=== PATIENT | male | born 1945 | race Caucasian/White ===

== ENCOUNTER 2017-01-30 20:59 | Emergency (ER) | payer BC, OTHER ==
[~2017-01-30] VITALS: Ht 177.8 cm; Wt 85.0 kg
[~2017-01-30 20:59] MED LIST: OXYC-57 PO
[2017-01-30 21:05] VITALS: TEMP 36.9; Ht 177.8 cm; Wt 85.0 kg
[2017-01-30] MEDS ORDERED: SODIUM CHLORIDE 0.9% 1000ML 1,000 ML IV STA (21:38)
[2017-01-30 21:52] VITALS: O2SAT 97
[2017-01-30] MEDS ORDERED: LISI-725 PO (22:06)
[2017-01-30] MEDS ORDERED: AMLO-110 PO (22:06)
[2017-01-30] MEDS ORDERED: METO50TA16 PO (22:06)
[2017-01-30] MEDS ORDERED: SULF800T23 PO (22:06)
[2017-01-30 22:09] LABS: BASO % 0.2 %; BASO ABS # 0.01 K/uL (0-0.2); COMPLETE YES; EOS % 0.7 %; HEMATOCRIT 28.9 % (42-52); IG% 0.2 %; LYMPH % 13.6 %; LYMPH ABS # 0.61 K/uL (1.2-3.4); MEAN CELL VOLUME 96.3 fL (80-100); MEAN CORPUSCULAR HGB CONC 35.3 g/dl (32-36); MEAN PLATELET VOLUME 8.9 fL (7.4-10.4); MONO % 10.7 %; NEUT % 74.6 %; PLATELET COUNT 262 K/uL (130-400)
[2017-01-30 22:26] LABS: ALT/SGPT 21 U/L (12-78); BLOOD UREA NITROGEN 18 mg/dl (7-18); BUN/CREATININE RATIO 14.2 (10-20); CALCIUM 7.9 mg/dl (8.5-10.1); CARBON DIOXIDE 29 mmol/L (21-32); CHLORIDE 101 mmol/L (98-107); GLUCOSE 95 mg/dl (70-99); MAGNESIUM 1.3 mg/dl (1.8-2.4); POTASSIUM 3.6 mmol/L (3.5-5.1); SODIUM 138 mmol/L (136-145)
[2017-01-30 22:28] LABS: ALKALINE PHOSPHATASE 53 U/L (45-117); AST/SGOT 21 U/L (15-37)
[2017-01-30] MEDS ORDERED: MAGNESIUM SULFATE 1GM / D5W 1 GM BAG IV STA (22:30)
[2017-01-30 23:32] LABS: URINE APPEARANCE CLEAR (CLEAR); URINE BILIRUBIN NEG (NEG); URINE COLOR YELLOW; URINE NITRITE NEG (NEG); URINE PH 6.5 (4.5-7.5); URINE SPECIFIC GRAVITY 1.018 (1.000-1.030); UROBILINOGEN POS (NEG)
[2017-01-30 23:37] LABS: MANUAL MICROSCOPIC REQUIRED? NO; REVIEW REQ? NO
--- NOTE | 2017-01-31 00:10 | EMERGENCY ROOM VISIT NOTE ---
History Report prepared by Sariah: Lorenzo Villafuerte Under the Supervision of: Raquel PortilloO. First contact with patient: 21:27 Chief Complaint: WEAKNESS Stated Complaint: UTI, LETHARGY, WEAK LEGS Nursing Triage Summary: Pt to triage in wheelchair. c/o lethargy and weakness. Ongoing for 10 days, worsening. seen at [facility] in, did blood work, sent to Dr Pro. Be with urinary infection, on abx for 2 days. Hx of enlarged prostate. denies pain denies urinary symptoms History of Present Illness The patient is a 71 year old male who presents to the Emergency Room with complaints of persistent generalized weakness beginning three days ago. He states that he has felt lethargic for the past ten days. 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 The patient notes that his right leg feels slightly weaker than his left. He denies any cough, urinary symptoms, or fevers. He was seen in a clinic in [place] three days ago for similar symptoms and was started on an antibiotic for a suspected UTI. Source of History: patient Onset: Three days ago Position: other (generalized) Quality: other (weakness) Timing: other (persistent) Associated Symptoms: No fevers, No cough, No urinary symptoms Note: The patient also complains of lethargy. Review of Systems See HPI for pertinent positives and negatives. A total of ten systems were reviewed and were otherwise negative. Past Medical & Surgical Medical Problems: (1) HTN (hypertension) Family History No pertinent family history stated. Social History Smoking Status: Former Smoker Occupation Status: employed Current/Historical Medications Scheduled Amlodipine (Norvasc), 5 MG PO DAILY Lisinopril (Zestril), 20 MG PO DAILY Metoprolol Tartrate (Lopressor) (Lopressor), 50 MG PO BID Sulfa/Trimethoprim (Bactrim Ds 800MG/160MG), 1 TAB PO BID Allergies Uncoded Allergies: POISEN YADY (Allergy, Intermediate, ITCHY, 01/30/17) Physical Exam Vital Signs Date Time Temp Pulse Resp B/P (MAP) Pulse Ox O2 Delivery O2 Flow Rate FiO2 01/30/17 23:50 74 20 145/88 100 Room Air 01/30/17 22:08 95 01/30/17 21:56 94 20 162/98 100 Room Air 01/30/17 21:52 97 Room Air 01/30/17 21:05 36.9 102 18 128/71 97 Room Air Physical Exam GENERAL: Awake, alert, well-appearing, in no distress HENT: Normocephalic, atraumatic. Oropharynx unremarkable. EYES: Normal conjunctiva. Sclera non-icteric. NECK: Supple. No nuchal rigidity. FROM. No JVD. RESPIRATORY: Clear to auscultation. CARDIAC: Regular rate, normal rhythm. Extremities warm and well perfused. Pulses equal. ABDOMEN: Soft, non-distended. No tenderness to palpation. No rebound or guarding. No masses. RECTAL: Deferred. MUSCULOSKELETAL: Chest examination reveals no tenderness. The back is symmetrical on inspection without obvious abnormality. There is no CVA tenderness to palpation. No joint edema. LOWER EXTREMITIES: Calves are equal size bilaterally and non-tender. No edema. No discoloration. NEURO: Normal sensorium. No sensory or motor deficits noted. SKIN: No rash or jaundice noted. Medical Decision & Procedures Laboratory Results 01/30/17 21:50 Red Blood Count 3.00, Mean Corpuscular Volume 96.3, Mean Corpuscular Hemoglobin 34.0, Mean Corpuscular Hemoglobin Concent 35.3, Mean Platelet Volume 8.9, Neutrophils (%) (Auto) 74.6, Lymphocytes (%) (Auto) 13.6, Monocytes (%) (Auto) 10.7, Eosinophils (%) (Auto) 0.7, Basophils (%) (Auto) 0.2, Neutrophils # (Auto ) 3.36, Lymphocytes # (Auto) 0.61, Monocytes # (Auto) 0.48, Eosinophils # (Auto ) 0.03, Basophils # (Auto) 0.01 01/30/17 21:50 Test 01/30/17 21:38 01/30/17 21:50 Urine Color YELLOW Urine Appearance CLEAR (CLEAR) Urine pH 6.5 (4.5-7.5) Urine Specific [place] 1.018 (1.000-1.030) Urine Protein NEG (NEG) Urine Glucose (UA) NEG (NEG) Urine Ketones NEG (NEG) Urine Occult Blood NEG (NEG) Urine Nitrite NEG (NEG) Urine Bilirubin NEG (NEG) Urine Urobilinogen POS (NEG) Urine Leukocyte Esterase TRACE (NEG) Urine WBC (Auto) 1-5 /hpf (0-5) Urine RBC (Auto) 0-4 /hpf (0-4) Urine Hyaline Casts (Auto) 1-5 /lpf (0-5) Urine Epithelial Cells (Auto) 10-20 /lpf (0-5) Urine Bacteria (Auto) NEG (NEG) White Blood Count 4.50 K/uL (4.8-10.8) Red Blood Count 3.00 M/uL (4.7-6.1) Hemoglobin 10.2 g/dL (14.0-18.0) Hematocrit 28.9 % (42-52) Mean Corpuscular Volume 96.3 fL (80-100) Mean Corpuscular Hemoglobin 34.0 pg (25-34) Mean Corpuscular Hemoglobin Concent 35.3 g/dl (32-36) Platelet Count 262 K/uL (130-400) Mean Platelet Volume 8.9 fL (7.4-10.4) Neutrophils (%) (Auto) 74.6 % Lymphocytes (%) (Auto) 13.6 % Monocytes (%) (Auto) 10.7 % Eosinophils (%) (Auto) 0.7 % Basophils (%) (Auto) 0.2 % Neutrophils # (Auto) 3.36 K/uL (1.4-6.5) Lymphocytes # (Auto) 0.61 K/uL (1.2-3.4) Monocytes # (Auto) 0.48 K/uL (0.11-0.59) Eosinophils # (Auto) 0.03 K/uL (0-0.5) Basophils # (Auto) 0.01 K/uL (0-0.2) RDW Standard Deviation 53.3 fL (36.4-46.3) RDW Coefficient of Variation 15.1 % (11.5-14.5) Immature Granulocyte % (Auto) 0.2 % Immature Granulocyte # (Auto) 0.01 K/uL (0.00-0.02) Nucleated RBC Absolute Count (auto) 0.02 K/uL (0-0) Nucleated Red Blood Cells % 0.4 % Anion Gap 8.0 mmol/L (3-11) Est Creatinine Clear Calc Drug Dose 53.0 ml/min Estimated GFR () 63.2 Estimated GFR (Non- 54.5 BUN/Creatinine Ratio 14.2 (10-20) Calcium Level 7.9 mg/dl (8.5-10.1) Magnesium Level 1.3 mg/dl (1.8-2.4) Total Bilirubin 0.3 mg/dl (0.2-1) Direct Bilirubin < 0.1 mg/dl (0-0.2) Aspartate Amino Transf (AST/SGOT) 21 U/L (15-37) Alanine Aminotransferase (ALT/SGPT) 21 U/L (12-78) Alkaline Phosphatase 53 U/L (45-117) Total Protein 6.7 gm/dl (6.4-8.2) Albumin 2.4 gm/dl (3.4-5.0) Laboratory results reviewed by me Medications Administered Medications (Trade) Dose Ordered Sig/Kell Route Start Time Stop Time Status Last Admin Dose Admin Sodium Chloride 1,000 ml @ 999 mls/hr Q1H1M STAT IV 01/30/17 21:38 01/30/17 22:38 DC 01/30/17 21:57 999 MLS/HR Magnesium Sulfate (Magnesium Sulfate) 1 gm NOW STAT IV 01/30/17 22:30 01/30/17 22:32 DC 01/30/17 22:53 1 GM ECG Indication: weakness Rate (beats per minute): 93 Rhythm: normal sinus Findings: no acute ischemic change, no ectopy, other (Normal axis. Normal intervals. ) ED Course 2129: The patient was evaluated in room C7. A complete history and physical exam was performed. 2137: Ordered Sodium Chloride 1000 ml @ 999 mls/hr IV. 2229: Ordered Magnesium Sulfate 1 gm IV. 0010: I reevaluated the patient. Discussed results and discharge instructions: he verbalized understanding and agreement. The patient is ready for discharge. Medical Decision Differential diagnosis: Etiologies such as metabolic, infection, hypo/hyperglycemia, electrolyte abnormalities, cardiac sources, intracerebral event, toxicologic, neurologic, as well as others were entertained. Patient found to have a slightly low magnesium was given magnesium IV. Patient is neurologically intact. I discussed the evaluation with the patient bedside at 12:08 AM Impression Primary Impression: Acute weakness Additional Impression: Hypomagnesemia Scribe Attestation The scribe's documentation has been prepared under my direction and personally reviewed by me in its entirety. I confirm that the note above accurately reflects all work, treatment, procedures, and medical decision making performed by me. Departure Information Dispostion Home / Self-Care Referrals Pro,Rigo Anderson M.D. (PCP) Patient Instructions ED Weakness UKO, Hypomagnesemia Dc, My [facility] Additional Instructions Patient was instructed to take magnesium supplementation and a multivitamin. Increase fluids return for worsening symptoms. Problem Qualifiers
[2017-01-31 00:45] VITALS: BP 146/78; PULSE 84; O2SAT 98
== END 2017-01-31 00:45 | disposition home or self-care (01) ==
LOC: C.EDB 21:01 → C.EDC 01-31 00:45
DX: R53.1 Weakness (principal); E83.42 Hypomagnesemia; I10 Essential (primary) hypertension; Z87.891 Personal history of nicotine dependence; Z79.899 Other long term (current) drug therapy; Z91.09 Other allergy status, other than to drugs and biological substances

== ENCOUNTER → 2017-02-03 | Outpatient (CLI) | payer OTHER ==
[~2017-02-03] MED LIST changes: +AMLO-110 PO; +LISI-725 PO; +METO50TA16 PO; -OXYC-57 PO; +SULF800T23 PO
[2017-02-03 17:19] LABS: MAGNESIUM 1.9 mg/dl (1.8-2.4); THYROID STIMULATING HORMONE 3.9 uIu/ml (0.300-4.500)
== END | disposition home or self-care (01) ==
LOC: C.LAB1850 15:20
PROVIDERS: ATTEND Internal Medicine
DX: R53.1 Weakness (principal)

== ENCOUNTER 2017-02-07 08:02 | Emergency (ER) | payer OTHER ==
[2017-02-07 08:03] VITALS: TEMP 36.6; Ht 177.8 cm
[2017-02-07] MEDS ORDERED: SODIUM CHLORIDE 0.9% 500ML 500 ML IV STA (08:34)
[2017-02-07] MEDS ORDERED: SODIUM CHLORIDE 0.9% 1000ML 1,000 ML IV STA (08:34)
--- NOTE | 2017-02-07 08:49 | EMERGENCY ROOM VISIT NOTE ---
History Report prepared by Sariah: Ryann Gayle Under the Supervision of: Dr. Delia Bach M.D. First contact with patient: 08:11 Chief Complaint: WEAKNESS Stated Complaint: LACK OF ENERGY-SENT BY 'S OFFICE Nursing Triage Summary: Pt c/o generalized weakness and fatigue x2 weeks Reports he was seen in ED for same last week Saw Dr. Mehta this morning and sent back to ED for eval History of Present Illness The patient is a 71 year old male who presents to the Emergency Room with complaints of constant weakness for the past two weeks. His weakness is not better or worse at different times throughout the day. The patient was seen in the ED last week for this complaint and followed up with his PCP this morning. He saw Dr. Mehta today who felt that the patient should discontinue his blood pressure medications and come to the ED for fluids and further evaluation. The patient states that he has been on three medications for hypertension for the past 5 years. He was normotensive on these medications, but states that over the past couple of weeks his blood pressure has been lower. The patient also reports a loss of appetite. He is forcing himself to eat meals. He estimates that he has lost between 30-35 pounds in the past 6 months. The patient denies cough, chest pain, shortness of breath, melena, and hematochezia. He did not take his medications this morning and he did not eat anything yet today. Source of History: patient Onset: two weeks ago Position: other (global) Quality: other (weakness) Timing: constant Associated Symptoms: No cough, No chest pain, No SOB, No melena, No hematochezia Note: Pt notes loss of appetite and weight loss. Review of Systems See HPI for pertinent positives & negatives. A total of 10 systems reviewed and were otherwise negative. Past Medical & Surgical Medical Problems: (1) HTN (hypertension) Surgical Problems: (1) History of tonsillectomy Family History Cancer Hypertension Social History Smoking Status: Former Smoker Alcohol Use: occasionally Housing Status: lives alone Occupation Status: employed Current/Historical Medications Scheduled Amlodipine (Norvasc), 2.5 MG PO DAILY Lisinopril (Zestril), 20 MG PO DAILY Metoprolol Tartrate (Lopressor) (Lopressor), 50 MG PO BID Allergies Coded Allergies: Poison Karla Extract/Poison [place] Extra (Unverified Allergy, Intermediate, ITCH, 02/07/17) Physical Exam Vital Signs Date Time Temp Pulse Resp B/P (MAP) Pulse Ox O2 Delivery O2 Flow Rate FiO2 02/07/17 11:36 105 18 115/62 99 02/07/17 10:32 85 16 116/51 99 Room Air 02/07/17 08:54 95 18 102/57 96 Room Air 02/07/17 08:34 93 02/07/17 08:03 36.6 93 20 96/60 100 Room Air Physical Exam Vital signs reviewed. General: Pale-appearing 71 year old male, in no significant distress. HEENT: No scleral icterus, PERRLA, neck supple. Atraumatic. Cardiovascular: Regular rate and rhythm, no extra sounds. Pulmonary: Clear to auscultation bilaterally, normal work of breathing. Abdomen: Soft, nontender, nondistended, positive bowel sounds. Rectal: Guaiac negative. Normal mucosa. Musculoskeletal: Atraumatic, no peripheral edema. Neurologic: Patient awake alert and oriented x 3, full strength in all 4 extremities. Cranial nerves 2 through 12 grossly intact. Skin: Warm, dry, no rash Medical Decision & Procedures Laboratory Results 02/07/17 08:50 Red Blood Count 3.40, Mean Corpuscular Volume 96.8, Mean Corpuscular Hemoglobin 33.5, Mean Corpuscular Hemoglobin Concent 34.7, Mean Platelet Volume 8.9, Neutrophils (%) (Auto) 72.3, Lymphocytes (%) (Auto) 11.8, Monocytes (%) (Auto) 12.9, Eosinophils (%) (Auto) 1.8, Basophils (%) (Auto) 0.7, Neutrophils # (Auto ) 4.05, Lymphocytes # (Auto) 0.66, Monocytes # (Auto) 0.72, Eosinophils # (Auto ) 0.10, Basophils # (Auto) 0.04 02/07/17 08:50 Test 02/07/17 08:50 02/07/17 09:35 White Blood Count 5.60 K/uL (4.8-10.8) Red Blood Count 3.40 M/uL (4.7-6.1) Hemoglobin 11.4 g/dL (14.0-18.0) Hematocrit 32.9 % (42-52) Mean Corpuscular Volume 96.8 fL (80-100) Mean Corpuscular Hemoglobin 33.5 pg (25-34) Mean Corpuscular Hemoglobin Concent 34.7 g/dl (32-36) Platelet Count 400 K/uL (130-400) Mean Platelet Volume 8.9 fL (7.4-10.4) Neutrophils (%) (Auto) 72.3 % Lymphocytes (%) (Auto) 11.8 % Monocytes (%) (Auto) 12.9 % Eosinophils (%) (Auto) 1.8 % Basophils (%) (Auto) 0.7 % Neutrophils # (Auto) 4.05 K/uL (1.4-6.5) Lymphocytes # (Auto) 0.66 K/uL (1.2-3.4) Monocytes # (Auto) 0.72 K/uL (0.11-0.59) Eosinophils # (Auto) 0.10 K/uL (0-0.5) Basophils # (Auto) 0.04 K/uL (0-0.2) RDW Standard Deviation 54.5 fL (36.4-46.3) RDW Coefficient of Variation 15.5 % (11.5-14.5) Immature Granulocyte % (Auto) 0.5 % Immature Granulocyte # (Auto) 0.03 K/uL (0.00-0.02) Anion Gap 9.0 mmol/L (3-11) Estimated GFR () 49.2 Estimated GFR (Non- 42.4 BUN/Creatinine Ratio 12.9 (10-20) Calcium Level 8.6 mg/dl (8.5-10.1) Magnesium Level 2.1 mg/dl (1.8-2.4) Total Bilirubin 0.3 mg/dl (0.2-1) Direct Bilirubin < 0.1 mg/dl (0-0.2) Aspartate Amino Transf (AST/SGOT) 32 U/L (15-37) Alanine Aminotransferase (ALT/SGPT) 30 U/L (12-78) Alkaline Phosphatase 67 U/L (45-117) Total Creatine Kinase 108 U/L (39-308) Creatine Kinase MB 4.4 ng/ml (0.5-3.6) Creatine Kinase MB Ratio 4.1 (0-3.0) Total Protein 7.1 gm/dl (6.4-8.2) Albumin 2.7 gm/dl (3.4-5.0) Thyroid Stimulating Hormone (TSH) 3.780 uIu/ml (0.300-4.500) Urine Color YELLOW Urine Appearance CLEAR (CLEAR) Urine pH 5.5 (4.5-7.5) Urine Specific [place] 1.014 (1.000-1.030) Urine Protein NEG (NEG) Urine Glucose (UA) NEG (NEG) Urine Ketones NEG (NEG) Urine Occult Blood NEG (NEG) Urine Nitrite NEG (NEG) Urine Bilirubin NEG (NEG) Urine Urobilinogen NEG (NEG) Urine Leukocyte Esterase NEG (NEG) Laboratory results per my review. Medications Administered Medications (Trade) Dose Ordered Sig/Kell Route Start Time Stop Time Status Last Admin Dose Admin Sodium Chloride 500 ml @ 999 mls/hr Q31M STAT IV 02/07/17 08:34 02/07/17 09:04 DC 02/07/17 08:53 999 MLS/HR Sodium Chloride 1,000 ml @ 125 mls/hr Q8H STAT IV 02/07/17 08:34 02/07/17 12:16 DC 02/07/17 08:53 125 MLS/HR ECG Indication: weakness Rate (beats per minute): 97 Rhythm: sinus rhythm Findings: PAC, no ectopy Comparison ECG Date: 01/30/2017 Change: PACs are new. ED Course 0830: Past medical records reviewed. The patient was evaluated in room B11B. A complete history and physical examination was performed. 0834: NSS 1000 ml @ 125 mls/hr IV, NSS 500 ml @ 999 mls/hr IV 1009: I reevaluated the patient and he is doing well. 1026: I spoke with the patient's PCP, Dr. Mehta. We discussed his results and treatment plan and he will arrange follow-up in the office next week. 1100: I reassessed the patient at this time. He is feeling better and resting comfortably. I discussed the results and treatment plan with the patient. I answered all pertaining questions that he had. He expressed understanding and verbalized agreement. The patient will be discharged home. Medical Decision Differential diagnosis: Etiologies such as metabolic, infection, hypo/hyperglycemia, electrolyte abnormalities, cardiac sources, intracerebral event, toxicologic, neurologic, as well as others were entertained. This patient was evaluated and appeared to be in no significant distress. IV access was obtained and laboratory work was drawn. Patient was paced on the hall monitor and found to be in a normal sinus rhythm. He was hydrated with normal saline solution. Patient is found to be anemic. There is no active bleeding on exam. I did speak with Dr. Mehta, his primary care physician. I suspect as the patient has lost significant amount awaiting the last 6 months, his blood pressure medications are now too much for him. It has been recommended that he stop taking his blood pressure medications. I'm concerned about a possible malignancy causing the weight loss. Dr. Mehta will arrange follow-up within the next week where further evaluation can take place. Patient is aware of the plan and agrees. Medication Reconcilliation Current Medication List: was personally reviewed by me Blood Pressure Screening Patient's blood pressure: Low blood pressure Consults Time Called: [phone] Consulting Physician: Dr. Mehta Returned Call: [phone] I spoke with the patient's PCP, Dr. Mehta. We discussed his results and treatment plan and he will arrange follow-up in the office next week. Impression Primary Impression: Fatigue Additional Impression: Anemia Scribe Attestation The scribe's documentation has been prepared under my direction and personally reviewed by me in its entirety. I confirm that the note above accurately reflects all work, treatment, procedures, and medical decision making performed by me. Departure Information Dispostion Home / Self-Care Referrals Rigo Mehta M.D. (PCP) Forms HOME CARE DOCUMENTATION FORM, IMPORTANT VISIT INFORMATION Patient Instructions Anemia, My [facility] Additional Instructions Diagnosis: Anemia, fatigue Please stop taking your blood pressure medications. Drink plenty of clear fluids. Follow-up with Dr. Mehta's office next week, they will contact you with an appointment. You will likely need a colonoscopy. Return to the emergency department for worsening of symptoms or any medical concerns. Problem Qualifiers Primary Impression: Fatigue Fatigue type: unspecified Qualified Codes: R53.83 - Other fatigue Additional Impression: Anemia Anemia type: unspecified type Qualified Codes: D64.9 - Anemia, unspecified
[2017-02-07 09:06] LABS: BASO % 0.7 %; BASO ABS # 0.04 K/uL (0-0.2); COMPLETE YES; EOS % 1.8 %; HEMATOCRIT 32.9 % (42-52); IG% 0.5 %; LYMPH % 11.8 %; LYMPH ABS # 0.66 K/uL (1.2-3.4); MEAN CELL VOLUME 96.8 fL (80-100); MEAN CORPUSCULAR HEMOGLOBIN 33.5 pg (25-34); MEAN CORPUSCULAR HGB CONC 34.7 g/dl (32-36); MEAN PLATELET VOLUME 8.9 fL (7.4-10.4); MONO % 12.9 %; NEUT % 72.3 %; PLATELET COUNT 400 K/uL (130-400)
[2017-02-07 09:23] LABS: ALT/SGPT 30 U/L (12-78); BLOOD UREA NITROGEN 21 mg/dl (7-18); BUN/CREATININE RATIO 12.9 (10-20); CALCIUM 8.6 mg/dl (8.5-10.1); CARBON DIOXIDE 24 mmol/L (21-32); CHLORIDE 101 mmol/L (98-107); GLUCOSE 96 mg/dl (70-99); MAGNESIUM 2.1 mg/dl (1.8-2.4); POTASSIUM 4.6 mmol/L (3.5-5.1); SODIUM 134 mmol/L (136-145)
[2017-02-07 09:34] LABS: ALKALINE PHOSPHATASE 67 U/L (45-117); AST/SGOT 32 U/L (15-37); CKMB/CK RATIO 4.1 (0-3.0)
[2017-02-07 09:50] LABS: MANUAL MICROSCOPIC REQUIRED? NO; REVIEW REQ? NO; URINE APPEARANCE CLEAR (CLEAR); URINE BILIRUBIN NEG (NEG); URINE COLOR YELLOW; URINE NITRITE NEG (NEG); URINE PH 5.5 (4.5-7.5); URINE SPECIFIC GRAVITY 1.014 (1.000-1.030); UROBILINOGEN NEG (NEG); ZZUR CULT IF INDIC CLEAN CATCH NO
[2017-02-07 11:36] VITALS: BP 115/62; PULSE 105; O2SAT 99
== END 2017-02-07 11:38 | disposition home or self-care (01) ==
LOC: C.EDB 08:04
DX: R53.83 Other fatigue (principal); D64.9 Anemia, unspecified; I10 Essential (primary) hypertension; Z79.82 Long term (current) use of aspirin; Z87.891 Personal history of nicotine dependence

== ENCOUNTER → 2017-03-11 | Outpatient (CLI) | payer OTHER ==
[~2017-03-11] MED LIST changes: -SULF800T23 PO
[2017-03-11 14:44] LABS: HEMATOCRIT 38.2 % (42-52); MEAN CELL VOLUME 103.5 fL (80-100); MEAN CORPUSCULAR HEMOGLOBIN 35.5 pg (25-34); MEAN CORPUSCULAR HGB CONC 34.3 g/dl (32-36); MEAN PLATELET VOLUME 9.9 fL (7.4-10.4); PLATELET COUNT 343 K/uL (130-400); RED BLOOD COUNT 3.69 M/uL (4.7-6.1); WHITE BLOOD COUNT 6.44 K/uL (4.8-10.8)
[2017-03-11 15:13] LABS: BLOOD UREA NITROGEN 7 mg/dl (7-18); CALCIUM 8.9 mg/dl (8.5-10.1); CARBON DIOXIDE 27 mmol/L (21-32); CHLORIDE 106 mmol/L (98-107); CREATININE 0.66 mg/dl (0.60-1.40); GLUCOSE 111 mg/dl (70-99); POTASSIUM 3.6 mmol/L (3.5-5.1); SODIUM 140 mmol/L (136-145)
[2017-03-11 15:20] LABS: AMYLASE 27 U/L (25-115)
[2017-03-15 18:35] LABS: IGA SERUM 497 mg/dL (81-463); TIS TRANS IGA 1 U/mL (<4)
== END | disposition home or self-care (01) ==
LOC: C.LAB1850 13:24
PROVIDERS: ATTEND Internal Medicine
DX: D64.9 Anemia, unspecified (principal); R63.4 Abnormal weight loss; E53.8 Deficiency of other specified B group vitamins; R97.20 Elevated prostate specific antigen [PSA]; N28.9 Disorder of kidney and ureter, unspecified

== ENCOUNTER 2017-05-21 16:33 | Inpatient (IN) | payer OTHER ==
[~2017-05-21] VITALS: Ht 180.3 cm; Wt 74.3 kg
--- NOTE | 2017-05-21 17:41 | EMERGENCY ROOM VISIT NOTE ---
ED Visit Note First contact with patient: 16:40 HPI: 71M h/o HTN, fatigue, loss of appetite x 1 week. Similar episodes in the past. PE: AFVSS, NAD Poor dentition, dry cracked MM. NC/AT ST, no murmurs CTAB Abd soft NT/ND Ext: no edema, erythema Neuro: grossly intact Plan: +Melena guaiac positive in setting of fatigue. HR 100s, BUN 24, Hbg 7.2, Glascow-Blatchford score high risk. Will require admission. Will given protonix. Will transfuse given mild tachycardia and symptomatic with Hbg 7.2 I have personally spent greater than 35 minutes of critical care time in the direct management of this patient. This includes bedside care, interpretation of diagnostic studies, and testing, discussion with consultants, patient, and family members, and other required patient management activities. This 35 minutes is in excess of all separately billable procedures. I reviewed the patient's past medical history, medications, and visit nursing notes. I discussed the case with the resident physician, examined the patient, and agree with the findings and plan as documented in the residents note unless otherwise clarified here by me.
[2017-05-21] MEDS ORDERED: PANTOprazole INJ 40 MG in SYRINGE 0 ML IV ONE (17:45)
--- NOTE | 2017-05-21 17:50 | EMERGENCY ROOM VISIT NOTE ---
History First contact with patient: 16:40 Chief Complaint: WEAKNESS Stated Complaint: WEAKNESS Nursing Triage Summary: Pt. presents to exam room A3 via BLS transport with reports of increasing weakness of the last 3 days and decreased appetite over the past couple of weeks. Pt. states that he has not eating for 3 days, but then states that he ate a slice of pizza this morning. EMS states that the patient was found lying on the floor at home with a pillow and blanket, incontinent of black stool. Pt. reports that he has been too weak to go out and get food and too weak to walk to the bathroom. He denies any pain or other physical complaints. Pt. retching upon arrival to exam room and is covered from waist down in dried, dark brown-black stool. History of Present Illness The patient is a 71 year old male who presents to the Emergency Room with complaints of weakness and lack of appetite x 1 week. He reports that this has been ongoing since last year. He was seen in the ED twice this past summer. This will be his 3rd visit for the same. He reports that this is happening due to improper eating and lack of access to food. He has been crawling on the ground at his home to get around due to being weak and has not been able to go out to eat. He was found by EMS today lying on the floor, with a blanket and covered in black stool. He admits to irregular bowel movements; diarrhea mostly. He is currently denying chest pain, shortness of breath, abdominal pain, nausea , vomiting, pre-syncope, syncope He was recently seen by his PCP and was told that he was anemic and was started on B12 and Folate. Denies heart history. Drives a tour bus occasionally. His sisters note that they found a couple of gin bottles in his apartment and feel that he maybe drinking too much Review of Systems See HPI for pertinent positives & negatives. A total of 10 systems reviewed and were otherwise negative. Past Medical/Surgical History Medical Problems: (1) GI bleed (2) HTN (hypertension) Surgical Problems: (1) History of tonsillectomy Family History Cancer Hypertension Social History Smoking Status: Never Smoker Alcohol Use: occasionally Marital Status: single Housing Status: lives alone Occupation Status: employed Current/Historical Medications Scheduled Amlodipine (Norvasc), 2.5 MG PO DAILY Metoprolol Tartrate (Lopressor) (Lopressor), 50 MG PO Q12H Physical Exam Vital Signs Date Time Temp Pulse Resp B/P (MAP) Pulse Ox O2 Delivery O2 Flow Rate FiO2 05/21/17 20:00 113 17 131/72 100 Room Air 05/21/17 19:30 111 19 136/72 98 Room Air 05/21/17 18:55 112 24 120/58 100 Room Air 05/21/17 18:33 111 22 98 05/21/17 18:03 96 17 98 05/21/17 17:33 109 21 98 05/21/17 16:40 147/76 05/21/17 16:35 110 18 147/76 95 Room Air 05/21/17 16:35 95 Room Air Physical Exam GENERAL: Awake, alert, well-appearing, in no acute distress, disheveled HENT: Normocephalic, atraumatic. Oropharynx unremarkable, poor dentition, poor grooming EYES: Normal conjunctiva. Sclera non-icteric. NECK: Supple. RESPIRATORY: Clear to auscultation. CARDIAC: Tachycardic, normal rhythm. Pulses equal. ABDOMEN: Soft, non-distended. No tenderness to palpation. No rebound or guarding. No masses. RECTAL: Black stools noted, no masses LOWER EXTREMITIES: Calves are non-tender. No edema. No discoloration. SKIN: No rash or jaundice noted. Medical Decision & Procedures Laboratory Results 05/21/17 17:52 Red Blood Count 2.27, Mean Corpuscular Volume 93.4, Mean Corpuscular Hemoglobin 31.7, Mean Corpuscular Hemoglobin Concent 34.0, Mean Platelet Volume 9.7, Neutrophils (%) (Auto) 66.9, Lymphocytes (%) (Auto) 16.7, Monocytes (%) (Auto) 10.5, Eosinophils (%) (Auto) 0.4, Basophils (%) (Auto) 0.8, Neutrophils # (Auto ) 1.72, Lymphocytes # (Auto) 0.43, Monocytes # (Auto) 0.27, Eosinophils # (Auto ) 0.01, Basophils # (Auto) 0.02 05/21/17 17:52 Test 05/21/17 17:00 05/21/17 17:52 05/21/17 18:34 Urine Color DK YELLOW Urine Appearance TURBID (CLEAR) Urine pH 5.5 (4.5-7.5) Urine Specific Williams 1.028 (1.000-1.030) Urine Protein 1+ (NEG) Urine Glucose (UA) 3+ (NEG) Urine Ketones 1+ (NEG) Urine Occult Blood TRACE (NEG) Urine Nitrite POS (NEG) Urine Bilirubin NEG (NEG) Urine Urobilinogen POS (NEG) Urine Leukocyte Esterase SMALL (NEG) Urine WBC (Auto) 10-30 /hpf (0-5) Urine RBC (Auto) 5-10 /hpf (0-4) Urine Hyaline Casts (Auto) 10-30 /lpf (0-5) Urine Epithelial Cells (Auto) 0-5 /lpf (0-5) Urine Bacteria (Auto) NEG (NEG) White Blood Count 2.57 K/uL (4.8-10.8) Red Blood Count 2.27 M/uL (4.7-6.1) Hemoglobin 7.2 g/dL (14.0-18.0) Hematocrit 21.2 % (42-52) Mean Corpuscular Volume 93.4 fL (80-100) Mean Corpuscular Hemoglobin 31.7 pg (25-34) Mean Corpuscular Hemoglobin Concent 34.0 g/dl (32-36) Platelet Count 114 K/uL (130-400) Mean Platelet Volume 9.7 fL (7.4-10.4) Neutrophils (%) (Auto) 66.9 % Lymphocytes (%) (Auto) 16.7 % Monocytes (%) (Auto) 10.5 % Eosinophils (%) (Auto) 0.4 % Basophils (%) (Auto) 0.8 % Neutrophils # (Auto) 1.72 K/uL (1.4-6.5) Lymphocytes # (Auto) 0.43 K/uL (1.2-3.4) Monocytes # (Auto) 0.27 K/uL (0.11-0.59) Eosinophils # (Auto) 0.01 K/uL (0-0.5) Basophils # (Auto) 0.02 K/uL (0-0.2) RDW Standard Deviation 48.7 fL (36.4-46.3) RDW Coefficient of Variation 14.5 % (11.5-14.5) Immature Granulocyte % (Auto) 4.7 % Immature Granulocyte # (Auto) 0.12 K/uL (0.00-0.02) Nucleated RBC Absolute Count (auto) 0.07 K/uL (0-0) Nucleated Red Blood Cells % 2.8 % Dohle Bodies OCCASIONAL Large Platelets 1+ Polychromasia 1+ Anisocytosis PRESENT Prothrombin Time 11.9 SECONDS (9.0-12.0) Prothromb Time International Ratio 1.1 (0.9-1.1) Activated Partial Thromboplast Time 26.2 SECONDS (21.0-31.0) Partial Thromboplastin Ratio 1.0 Anion Gap 8.0 mmol/L (3-11) Est Creatinine Clear Calc Drug Dose 68.0 ml/min Estimated GFR () 88.9 Estimated GFR (Non- 76.7 BUN/Creatinine Ratio 24.5 (10-20) Calcium Level 8.1 mg/dl (8.5-10.1) Magnesium Level 1.5 mg/dl (1.8-2.4) Total Bilirubin 0.5 mg/dl (0.2-1) Direct Bilirubin 0.3 mg/dl (0-0.2) Aspartate Amino Transf (AST/SGOT) 23 U/L (15-37) Alanine Aminotransferase (ALT/SGPT) 21 U/L (12-78) Alkaline Phosphatase 94 U/L (45-117) Total Creatine Kinase 90 U/L (39-308) Creatine Kinase MB 2.1 ng/ml (0.5-3.6) Creatine Kinase MB Ratio 2.3 (0-3.0) Troponin I < 0.015 ng/ml (0-0.045) Total Protein 6.1 gm/dl (6.4-8.2) Albumin 2.0 gm/dl (3.4-5.0) Globulin 4.1 gm/dl (2.5-4.0) Albumin/Globulin Ratio 0.5 (0.9-2) Lipase 365 U/L (73-393) Ethyl Alcohol mg/dL < 3.0 mg/dl (0-3) Medications Administered Medications (Trade) Dose Ordered Sig/Kell Route Start Time Stop Time Status Last Admin Dose Admin Potassium Chloride 10 meq/ Prmx 100 ml @ 100 mls/hr Q1H IV 05/21/17 19:00 05/21/17 21:25 DC 05/21/17 19:43 100 MLS/HR ED Course 1715 Patient evaluated in A3 1735 labs ordered, Hemoccult positive. 1830 Discussed with family about blood work, hgb of 7.2 and blood transfusion as well as admission. 1845 Ordered 40 meq of potassium and 2 gm of Magnesium 1850 Discussed with [facility] hospitalist and they will evaluate further. Medical Decision This is a 71 y/o M who presents with Weakness and Fatigue x 1 week. Etiologies considered include infection, electrolyte abnormalities, GI bleed, cardiac pathologies, neurologic, toxicologic etc. He was tachycardic on admission likely secondary to blood loss anemia. Rectal exam revealed black tarry stools, FOBT positive. His GBS score is 11 (high likelihood of requiring intervention). H/h was 7.2/22. U/A was also positive (dose of Rocephin ordered and culture ordered as well). He was also noted to have potassium of 2.5 and magnesium of 1.5, both of which were replaced. He was started on IV fluids and was consented for blood transfusion. His case was discussed with the [facility] hospitalist group and he will be admitted for further medical management. He will also likely need child protective services social worker to evaluate his situation at home (there was some concern raised by his family about his alcohol use and personal hygiene etc.) Blood Pressure Screening Blood pressure disposition: Elevated BP felt to be situational Impression Primary Impression: GI bleed Additional Impressions: Hypokalemia Hypomagnesemia Departure Information Referrals Pro,Rigo Anderson M.D. (PCP) Patient Instructions My [facility] Problem Qualifiers Primary Impression: GI bleed GI bleed type/associated pathology: unspecified gastrointestinal hemorrhage type Qualified Codes: K92.2 - Gastrointestinal hemorrhage, unspecified
[2017-05-21] MEDS ORDERED: AMLO2.5T PO (18:02)
[2017-05-21 18:18] LABS: HEMATOCRIT 21.2 % (42-52); MEAN CELL VOLUME 93.4 fL (80-100); MEAN CORPUSCULAR HEMOGLOBIN 31.7 pg (25-34); MEAN PLATELET VOLUME 9.7 fL (7.4-10.4); PLATELET COUNT 114 K/uL (130-400); RED BLOOD COUNT 2.27 M/uL (4.7-6.1); WHITE BLOOD COUNT 2.57 K/uL (4.8-10.8)
[2017-05-21] MEDS ORDERED: SODIUM CHLORIDE 0.9% 1000ML 1,000 ML IV SCH (18:30)
[2017-05-21 18:31] LABS: INR 1.1 (0.9-1.1); PROTHROMBIN TIME (PATIENT) 11.9 SECONDS (9.0-12.0)
[2017-05-21 18:42] LABS: ALB/GLOB RATIO 0.5 (0.9-2); ALKALINE PHOSPHATASE 94 U/L (45-117); ALT/SGPT 21 U/L (12-78); AST/SGOT 23 U/L (15-37); BLOOD UREA NITROGEN 24 mg/dl (7-18); BUN/CREATININE RATIO 24.5 (10-20); CALCIUM 8.1 mg/dl (8.5-10.1); CARBON DIOXIDE 32 mmol/L (21-32); CHLORIDE 97 mmol/L (98-107); CKMB/CK RATIO 2.3 (0-3.0); CREATININE 0.98 mg/dl (0.60-1.40); GLUCOSE 207 mg/dl (70-99); MAGNESIUM 1.5 mg/dl (1.8-2.4); POTASSIUM 2.5 mmol/L (3.5-5.1); SODIUM 138 mmol/L (136-145)
[2017-05-21] MEDS ORDERED: POTASSIUM CHLR 20 MEQ / WTR 40 MEQ in PREMIXED WATER 100 ML IV STA (18:44)
[2017-05-21] MEDS ORDERED: MAGNESIUM SULFATE 1GM / D5W 1 GM BAG IV STA (18:45)
[2017-05-21] MEDS ORDERED: POTASSIUM CHLR 10MEQ / WTR IV SCH (19:00)
[2017-05-21 19:19] LABS: ANISOCYTOSIS PRESENT; BASO % 0.8 %; BASO ABS # 0.02 K/uL (0-0.2); COMPLETE YES; DOHLE BODIES OCCASIONAL; EOS % 0.4 %; IG% 4.7 %; LARGE PLATELETS 1+; LYMPH % 16.7 %; LYMPH ABS # 0.43 K/uL (1.2-3.4); MONO % 10.5 %; NEUT % 66.9 %; POLYCHROMASIA 1+
--- NOTE | 2017-05-21 19:33 | History and Physical ---
History & Physical Date & Time of Service: May 21, 2017 at 19:26 Chief Complaint: Weakness Primary Care Physician: Rigo Mehta M.D. History of Present Illness Mr. Zhang was found this afternoon by his landlord covered in a blanket and black tarry stools. He has been having problems with loss of appetite with weight loss at least since this summer. He has had black stools over the last week x2. He also has not had access to food after becoming to weak to drive and did not eat for three days this week. No other s/s of blood. No dizziness, lightheadedness, chest pain, sob. No N/V but he has had a little "spit up". Occasional cough, gets sob moving and is unable to walk due to weakness. Hx htn , anemia, B12 deficiency, HLD, and folic acid deficiency. His last colonoscopy was in 2010 and was normal. He denies any alcohol consumption for three weeks. Past Medical/Surgical History Medical Problems: (1) HTN (hypertension) Status: Chronic Surgical Problems: (1) History of tonsillectomy Status: Resolved Family History Cancer Hypertension Social History Smoking Status: Former Smoker (pipe) Alcohol Use: none (none in the last three weeks) Drug Use: none Marital Status: single Occupational Status: unemployed Multi-Drug Resistant Organisms History of MDRO: No Allergies Coded Allergies: Poison Karla Extract/Poison Jaroso Extra (Unverified Allergy, Intermediate, ITCH, 05/21/17) Home Medications Scheduled Amlodipine (Norvasc), 2.5 MG PO DAILY Metoprolol Tartrate (Lopressor) (Lopressor), 50 MG PO Q12H Review of Systems Constitutional: No fever, No chills Respiratory: + cough, + shortness of breath Cardiovascular: No chest pain, No palpitations Abdomen: + GI bleeding, No pain, No nausea, No vomiting Genitourinary - Male: No hematuria Physical Exam Vital Signs Date Time Temp Pulse Resp B/P (MAP) Pulse Ox O2 Delivery O2 Flow Rate FiO2 05/21/17 18:55 112 24 120/58 100 Room Air 05/21/17 18:33 111 22 98 05/21/17 18:03 96 17 98 05/21/17 17:33 109 21 98 05/21/17 16:40 147/76 05/21/17 16:35 110 18 147/76 95 Room Air 05/21/17 16:35 95 Room Air General: no distress Eyes: normal inspection, PERLL Respiratory: chest non tender, clear to auscultation, normal breath sounds, no respiratory distress, no accessory muscle use Cardiac: irregular rate and rhythm, no rub or gallop, no murmur, no edema, no jvd GI/: active bowel sounds, no abd pain or tenderness, soft, non distended Extremities: normal range of motion, normal strength, non tender Neuro/Psych: alert and oriented x 3, normal mood and affect Skin: normal color, dry mucous membranes Diagnostics Laboratory Results Results Past 24 Hours Test 05/21/17 17:27 05/21/17 17:52 05/21/17 18:34 Range/Units White Blood Count 2.57 4.8-10.8 K/uL Red Blood Count 2.27 4.7-6.1 M/uL Hemoglobin 7.2 14.0-18.0 g/dL Hematocrit 21.2 42-52 % Mean Corpuscular Volume 93.4 80-100 fL Mean Corpuscular Hemoglobin 31.7 25-34 pg Mean Corpuscular Hemoglobin Concent 34.0 32-36 g/dl Platelet Count 114 130-400 K/uL Mean Platelet Volume 9.7 7.4-10.4 fL Neutrophils (%) (Auto) 66.9 % Lymphocytes (%) (Auto) 16.7 % Monocytes (%) (Auto) 10.5 % Eosinophils (%) (Auto) 0.4 % Basophils (%) (Auto) 0.8 % Neutrophils # (Auto) 1.72 1.4-6.5 K/uL Lymphocytes # (Auto) 0.43 1.2-3.4 K/uL Monocytes # (Auto) 0.27 0.11-0.59 K/uL Eosinophils # (Auto) 0.01 0-0.5 K/uL Basophils # (Auto) 0.02 0-0.2 K/uL RDW Standard Deviation 48.7 36.4-46.3 fL RDW Coefficient of Variation 14.5 11.5-14.5 % Immature Granulocyte % (Auto) 4.7 % Immature Granulocyte # (Auto) 0.12 0.00-0.02 K/uL Nucleated RBC Absolute Count (auto) 0.07 0-0 K/uL Nucleated Red Blood Cells % 2.8 % Dohle Bodies OCCASIONAL Large Platelets 1+ Polychromasia 1+ Anisocytosis PRESENT Prothrombin Time 11.9 9.0-12.0 SECONDS Prothromb Time International Ratio 1.1 0.9-1.1 Activated Partial Thromboplast Time 26.2 21.0-31.0 SECONDS Partial Thromboplastin Ratio 1.0 Sodium Level 138 136-145 mmol/L Potassium Level 2.5 3.5-5.1 mmol/L Chloride Level 97 98-107 mmol/L Carbon Dioxide Level 32 21-32 mmol/L Anion Gap 8.0 3-11 mmol/L Blood Urea Nitrogen 24 7-18 mg/dl Creatinine 0.98 0.60-1.40 mg/dl Est Creatinine Clear Calc Drug Dose 68.0 ml/min Estimated GFR () 88.9 Estimated GFR (Non- 76.7 BUN/Creatinine Ratio 24.5 10-20 Random Glucose 207 70-99 mg/dl Calcium Level 8.1 8.5-10.1 mg/dl Magnesium Level 1.5 1.8-2.4 mg/dl Total Bilirubin 0.5 0.2-1 mg/dl Direct Bilirubin 0.3 0-0.2 mg/dl Aspartate Amino Transf (AST/SGOT) 23 15-37 U/L Alanine Aminotransferase (ALT/SGPT) 21 12-78 U/L Alkaline Phosphatase 94 45-117 U/L Total Creatine Kinase 90 39-308 U/L Creatine Kinase MB 2.1 0.5-3.6 ng/ml Creatine Kinase MB Ratio 2.3 0-3.0 Total Protein 6.1 6.4-8.2 gm/dl Albumin 2.0 3.4-5.0 gm/dl Globulin 4.1 2.5-4.0 gm/dl Albumin/Globulin Ratio 0.5 0.9-2 Lipase 365 73-393 U/L Ethyl Alcohol mg/dL < 3.0 0-3 mg/dl Impression Assessment and Plan Mr. Zhang is a 71 year old man here for GI bleed after he was found this afternoon by his landlord covered in a blanket and black tarry stools. He has been having problems with loss of appetite with weight loss at least since this summer. He has had black stools over the last week x2. He also has not had access to food after becoming too weak to drive and did not eat for three days this week. Hx htn, anemia, B12 deficiency, HLD, and folic acid deficiency. His last colonoscopy was in 2010 and was normal. He denies any alcohol consumption for three weeks. GI Bleed/acute blood loss anemia - admit telemetry - transfuse 2 units prbcs - protonix gtt - NSS 40K @ 100 ml/hr - hgb after blood infusion, cbc am - NPO - consult GI Hypokalemia - repleated - recheck prp in the am Hypomagnesemia - repleated Hyperglycemia - sliding scale Anemia - Normal MCV but wide RDW - Iron, B12, folate HTN - continue home blood pressure medications DVT prophylaxis - SCDs Full code OIL DIPPER Physician Supervision Note: I interviewed and examined the patient. Discussed with Lola Atkins NP and agree with findings and plan as documented in the note. Any exceptions or clarifications are listed here: None Patient was brought here by his family after his landlord called them there is found on the floor covered in feces that were dark in color patient is a known alcoholic and drinks typically around 1 of December a week he however states he's not eaten or drank much for the last 3 weeks and he feels is gone through withdrawal at home he currently is oriented 3 but at times asked questions me to consider his clarity he has no alcohol in his system on presentation His vital signs no tachycardia his blood pressure stable Physical exam finds his cardiac exam to be regular as mentioned lungs are clear abdomen is without hepatomegaly no epigastric pain extremity are with bruises on his elbows and knees his hemoglobin presentation was 7.2 Concern for upper GI bleed possibly variceal bleed as he's not having any pain in his epigastrium plan patiently rounded telemetry hydrated his electrodes to be repleted he'll be transfused 2 units of blood and really put on a Protonix drip he'll appear in Ativan as needed Documented By: Rosales Pérez Resuscitation Status FULL RESUSCITATION VTE Prophylaxis VTE Risk Assessment Done? Y/N: Yes Risk Level: Moderate
[2017-05-21] MEDS ORDERED: NSS + 20MEQ KCL 1000ML 1,000 ML IV SCH (19:49)
[2017-05-21] MEDS ORDERED: ACETAMINOPHEN 325 MG TAB PO PRN (20:00)
[2017-05-21] MEDS ORDERED: WTR IV SCH (20:15)
[2017-05-21] MEDS ORDERED: POTASSIUM CHLR IV SCH (20:15)
[2017-05-21] MEDS ORDERED: PREMIXED WATER IV SCH (20:15)
[2017-05-21 20:53] LABS: URINE APPEARANCE TURBID (CLEAR); URINE COLOR DK YELLOW; URINE EPITHELIAL CELL AUTO 0-5 /lpf (0-5); URINE NITRITE POS (NEG); URINE PH 5.5 (4.5-7.5); URINE SPECIFIC GRAVITY 1.028 (1.000-1.030); UROBILINOGEN POS (NEG)
[2017-05-21] MEDS ORDERED: PANTOprazole INJ 40 MG in SYRINGE 0 ML IV SCH (21:00)
[2017-05-21] MEDS ORDERED: PANTOprazole INJ 80 MG in DEXTROSE 5% 100ML IV STA (21:11)
[2017-05-21 21:18] LABS: MANUAL MICROSCOPIC REQUIRED? NO; REVIEW REQ? NO; URINE BILIRUBIN NEG (NEG)
[2017-05-21 21:23] LABS: FERRITIN 1296.3 ng/ml (8.0-388.0)
[2017-05-21] MEDS ORDERED: GLUCOSE 40% GEL 15 GM TUBE PO PRN (21:30)
[2017-05-21] MEDS ORDERED: DEXTROSE 50% 50 ML SYR IV PRN (21:30)
[2017-05-21] MEDS ORDERED: GLUCAGON FOR INJ 1 MG VIAL SQ PRN (21:30)
[2017-05-21] MEDS ORDERED: GLUCOSE 10 TABS/TUBE PO PRN (21:30)
[2017-05-21] MEDS: POTASSIUM CHLR 10 MEQ / WTR 10 MEQ in PREMIXED WATER 100 ML IV SCH ×2 (22:10→23:17)
[2017-05-21] MEDS: POTASSIUM CHLORIDE INJ 40 MEQ in SODIUM CHLORIDE 0.9% 1000ML 1,000 ML IV SCH (22:10)
[2017-05-21 22:24] VITALS: BP 145/85; PULSE 108; TEMP 37.9; O2SAT 99
[2017-05-21] MEDS: MAGNESIUM SULFATE 1GM / D5W 1 GM in PREMIXED IN D5W 100 ML IV SCH ×2 (22:26→23:21)
[2017-05-21] MEDS ORDERED: CEFTRIAXONE SOD INJ 1 GM in DEXTROSE 5% ADD-VANTAGE 50ML 50 ML IV ONE (22:45)
[2017-05-21 23:08] VITALS: BMI 22.0
[2017-05-21] MEDS: PANTOprazole INJ 40 MG in DEXTROSE 5% 100ML IV SCH (23:21)
[2017-05-21] MEDS: METOPROLOL TARTRATE 50 MG TAB PO SCH (23:22)
[2017-05-21] MEDS ORDERED: PNEUMOCOCCAL ADMINISTRATION CHARGE ONE (23:30)
[2017-05-21] MEDS ORDERED: PNEUMOCOCCAL POLYSACCHARIDES 25 MCG/0.5 ML VIAL/SYR IM. ONE (23:30)
[2017-05-21] MEDS ORDERED: INFLUENZA VACCINE HIGH DOSE 65+ 0.5 ML SYR IM. ONE (23:30)
[2017-05-21] MEDS: INSULIN ASPART 100 UNITS/ML 3 ML PEN SC SCH (23:30)
[2017-05-21] MEDS ORDERED: INFLUENZA ADMINISTRATION CHARGE ONE (23:30)
[2017-05-21] MEDS: AMLODIPINE BESYLATE 5 MG TAB PO SCH (23:33)
[2017-05-21 23:45] VITALS: BP 119/64; PULSE 82; TEMP 36.8; O2SAT 99
[2017-05-22] VITALS (21 sets, daily range): BP systolic 94–156; BP diastolic 57–82; PULSE 75–100; TEMP 36.5–38.2; O2SAT 95–100
[2017-05-22] MEDS: MAGNESIUM SULFATE 1GM / D5W 1 GM in PREMIXED IN D5W 100 ML IV SCH (00:15)
[2017-05-22] MEDS: POTASSIUM CHLR 10 MEQ / WTR 10 MEQ in PREMIXED WATER 100 ML IV SCH ×3 (00:15→01:58)
[2017-05-22] MEDS: PANTOprazole INJ 40 MG in DEXTROSE 5% 100ML IV SCH ×4 (02:26→21:52)
[2017-05-22 03:07] LABS: HEMATOCRIT 22.5 % (42-52); MEAN CORPUSCULAR HEMOGLOBIN 30.8 pg (25-34); PLATELET COUNT 102 K/uL (130-400); WHITE BLOOD COUNT 2.98 K/uL (4.8-10.8)
[2017-05-22 03:19] LABS: MEAN CORPUSCULAR HGB CONC 34.2 g/dl (32-36)
[2017-05-22 03:27] LABS: BUN/CREATININE RATIO 23.1 (10-20); CALCIUM 7.2 mg/dl (8.5-10.1); CREATININE 0.91 mg/dl (0.60-1.40); POTASSIUM 2.8 mmol/L (3.5-5.1)
[2017-05-22 03:35] LABS: BASO % 0.3 %; BASO ABS # 0.01 K/uL (0-0.2); COMPLETE YES; EOS % 0.3 %; LARGE PLATELETS 1+; LYMPH % 21.8 %; LYMPH ABS # 0.65 K/uL (1.2-3.4); MONO % 9.4 %; NEUT % 66.2 %
[2017-05-22 07:47] LABS: ESTIMATED AVERAGE GLUCOSE 117 mg/dl; HA1C FLAG Normal (Normal)
[2017-05-22] MEDS: INSULIN ASPART 100 UNITS/ML 3 ML PEN SC SCH ×4 (07:58→21:49)
[2017-05-22] MEDS: METOPROLOL TARTRATE 50 MG TAB PO SCH ×2 (07:59→21:45)
[2017-05-22] MEDS: POTASSIUM CHLORIDE INJ 40 MEQ in SODIUM CHLORIDE 0.9% 1000ML 1,000 ML IV SCH ×2 (07:59→20:16)
[2017-05-22 08:38] LABS: HEMATOCRIT 25.8 % (42-52)
[2017-05-22 09:03] LABS: BUN/CREATININE RATIO 21.2 (10-20); CALCIUM 7.3 mg/dl (8.5-10.1); CREATININE 0.83 mg/dl (0.60-1.40); POTASSIUM 3.2 mmol/L (3.5-5.1)
--- NOTE | 2017-05-22 09:15 | Gastrointestinal Consultation ---
Gastrointestinal Consultation Date of Consultation: May 22, 2017 Attending Physician: Dr. Pérez Consulting Physician: Gail Alba PA-C Reason for Consultation: Anemia, Melena History of Present Illness Patient is a 71 year old male who presented to the hospital after being found by his landlord covered in a blanket covered in black tarry stools. The patient reports he had been experiencing black tarry stools for 1 week. He reports some weakness, but he denies other symptoms. He reports he had been struggling with weight loss since summer and states that he saw a physician but didn't proceed with much of the recommended testing. He reports he has had a decreased appetite , but also acknowledges he did not have access to food because he was not in shape to drive. He denies a family history of GI abnormalities. He had a colonoscopy in 2009 that was unremarkable. He denies NSAID use. He reports he has no past medical history, though review of his outpatient chart indicates he has a history of hypertension, HLD, anemia, vitamin B12 & folic acid deficiency. The patient has an elevated PSA. He recently saw Dr. Mehta in February who recommended an EGD and colonoscopy, however the patient refused. He was [facility] to [facility]. He declined to schedule his EGD/Colonoscopy at that time and did not follow-up. He had unremarkable Celiac testing. His H/H was 13/38 in March 2017. It is now 8.8/25.8. The patient denies alcohol consumption within the past several weeks. Past Medical/Surgical History Medical Problems: (1) Acute weakness Status: Acute (2) Anemia Status: Acute (3) Fatigue Status: Acute (4) Hypokalemia Status: Acute (5) Hypomagnesemia Status: Acute (6) Hypomagnesemia Status: Acute Past Medical History: HTN, HLD, Anemia, vitamin B12 & folic acid deficiency Past Surgical History: None pertinent Family History Cancer Hypertension Social History Smoking Status: Never Smoker Alcohol Use: occasionally Drug Use: none Marital Status: single Housing Status: lives alone Occupation Status: unemployed Allergies Coded Allergies: Poison Karla Extract/Poison [place] Extra (Unverified Allergy, Intermediate, ITCH, 05/21/17) Current Medications Home Meds and Scripts Medications Dose Route/Sig Max Daily Dose Days Date Category Norvasc (Amlodipine Besylate) 2.5 Mg Tab 2.5 Mg PO DAILY 05/21/17 Reported Lopressor (Metoprolol Tartrate) 50 Mg Tab 50 Mg PO Q12H 01/30/17 Reported Review of Systems Constitutional: + weakness Eyes: No problem reported Respiratory: No cough, No shortness of breath Cardiac: No chest pain Abdomen: + problem reported (melena), No pain, No nausea, No vomiting, No diarrhea, No constipation Musculoskeletal: No joint pain Psych: No problem reported Skin: No problem reported Physical Exam Date Time Temp Pulse Resp B/P (MAP) Pulse Ox O2 Delivery O2 Flow Rate FiO2 05/22/17 07:40 36.6 93 20 151/82 (105) 98 Room Air 05/22/17 06:35 37.0 90 18 125/80 98 05/22/17 05:30 37.0 87 18 119/74 97 05/22/17 05:04 36.9 89 18 117/74 98 05/22/17 04:45 37.0 91 18 117/76 (90) 97 Room Air 05/22/17 04:00 Room Air 05/22/17 03:53 36.6 89 18 156/74 (101) 99 05/22/17 01:53 36.9 87 18 105/66 98 05/22/17 01:30 36.9 75 18 101/59 99 05/22/17 00:30 36.9 81 16 96/57 100 05/22/17 00:18 38.2 100 20 129/76 (93) 98 05/22/17 00:00 36.9 80 18 94/57 99 05/21/17 23:59 Room Air 05/21/17 23:45 36.8 82 18 119/64 99 05/21/17 23:08 Room Air 05/21/17 22:24 37.9 108 18 145/85 (105) 99 Room Air 05/21/17 20:38 107 21 136/71 100 05/21/17 20:00 113 17 131/72 100 Room Air 05/21/17 19:30 111 19 136/72 98 Room Air 05/21/17 18:55 112 24 120/58 100 Room Air 05/21/17 18:33 111 22 98 05/21/17 18:03 96 17 98 05/21/17 17:33 109 21 98 11/15/17 16:40 147/76 05/21/17 16:35 110 18 147/76 95 Room Air 05/21/17 16:35 95 Room Air General Appearance: WD/WN, no apparent distress Eyes: normal inspection, PERRL Respiratory/Chest: lungs clear, normal breath sounds Cardiovascular: regular rate, rhythm Abdomen: normal bowel sounds, non tender, soft Extremities: non-tender Neurologic/Psych: alert, oriented x 3 Skin: normal color Laboratory Results Last 24 Hours Test 05/21/17 17:00 05/21/17 17:52 05/21/17 18:34 05/21/17 20:37 Urine Color DK YELLOW Urine Appearance TURBID Urine pH 5.5 Urine Specific [place] 1.028 Urine Protein 1+ Urine Glucose (UA) 3+ Urine Ketones 1+ Urine Occult Blood TRACE Urine Nitrite POS Urine Bilirubin NEG Urine Urobilinogen POS Urine Leukocyte Esterase SMALL Urine WBC (Auto) 10-30 /hpf Urine RBC (Auto) 5-10 /hpf Urine Hyaline Casts (Auto) 10-30 /lpf Urine Epithelial Cells (Auto) 0-5 /lpf Urine Bacteria (Auto) NEG White Blood Count 2.57 K/uL Red Blood Count 2.27 M/uL Hemoglobin 7.2 g/dL Hematocrit 21.2 % Mean Corpuscular Volume 93.4 fL Mean Corpuscular Hemoglobin 31.7 pg Mean Corpuscular Hemoglobin Concent 34.0 g/dl Platelet Count 114 K/uL Mean Platelet Volume 9.7 fL Neutrophils (%) (Auto) 66.9 % Lymphocytes (%) (Auto) 16.7 % Monocytes (%) (Auto) 10.5 % Eosinophils (%) (Auto) 0.4 % Basophils (%) (Auto) 0.8 % Neutrophils # (Auto) 1.72 K/uL Lymphocytes # (Auto) 0.43 K/uL Monocytes # (Auto) 0.27 K/uL Eosinophils # (Auto) 0.01 K/uL Basophils # (Auto) 0.02 K/uL RDW Standard Deviation 48.7 fL RDW Coefficient of Variation 14.5 % Immature Granulocyte % (Auto) 4.7 % Immature Granulocyte # (Auto) 0.12 K/uL Nucleated RBC Absolute Count (auto) 0.07 K/uL Nucleated Red Blood Cells % 2.8 % Dohle Bodies OCCASIONAL Large Platelets 1+ Polychromasia 1+ Anisocytosis PRESENT Prothrombin Time 11.9 SECONDS Prothromb Time International Ratio 1.1 Activated Partial Thromboplast Time 26.2 SECONDS Partial Thromboplastin Ratio 1.0 Sodium Level 138 mmol/L Potassium Level 2.5 mmol/L Chloride Level 97 mmol/L Carbon Dioxide Level 32 mmol/L Anion Gap 8.0 mmol/L Blood Urea Nitrogen 24 mg/dl Creatinine 0.98 mg/dl Est Creatinine Clear Calc Drug Dose 68.0 ml/min Estimated GFR () 88.9 Estimated GFR (Non- 76.7 BUN/Creatinine Ratio 24.5 Random Glucose 207 mg/dl Calcium Level 8.1 mg/dl Magnesium Level 1.5 mg/dl Total Bilirubin 0.5 mg/dl Direct Bilirubin 0.3 mg/dl Aspartate Amino Transf (AST/SGOT) 23 U/L Alanine Aminotransferase (ALT/SGPT) 21 U/L Alkaline Phosphatase 94 U/L Total Creatine Kinase 90 U/L Creatine Kinase MB 2.1 ng/ml Creatine Kinase MB Ratio 2.3 Troponin I < 0.015 ng/ml Total Protein 6.1 gm/dl Albumin 2.0 gm/dl Globulin 4.1 gm/dl Albumin/Globulin Ratio 0.5 Lipase 365 U/L Ethyl Alcohol mg/dL < 3.0 mg/dl Total Iron Binding Capacity 140 mcg/dl Ferritin 1296.3 ng/ml Vitamin B12 Level 938 pg/mL Folate 7.26 ng/mL Test 05/21/17 23:24 05/22/17 02:58 05/22/17 08:30 Bedside Glucose 250 mg/dl White Blood Count 2.98 K/uL Red Blood Count 2.50 M/uL Hemoglobin 7.7 g/dL 8.8 g/dL Hematocrit 22.5 % 25.8 % Mean Corpuscular Volume 90.0 fL Mean Corpuscular Hemoglobin 30.8 pg Mean Corpuscular Hemoglobin Concent 34.2 g/dl Platelet Count 102 K/uL Mean Platelet Volume 10.0 fL Neutrophils (%) (Auto) 66.2 % Lymphocytes (%) (Auto) 21.8 % Monocytes (%) (Auto) 9.4 % Eosinophils (%) (Auto) 0.3 % Basophils (%) (Auto) 0.3 % Neutrophils # (Auto) 1.97 K/uL Lymphocytes # (Auto) 0.65 K/uL Monocytes # (Auto) 0.28 K/uL Eosinophils # (Auto) 0.01 K/uL Basophils # (Auto) 0.01 K/uL RDW Standard Deviation 50.6 fL RDW Coefficient of Variation 15.6 % Immature Granulocyte % (Auto) 2.0 % Immature Granulocyte # (Auto) 0.06 K/uL Nucleated RBC Absolute Count (auto) 0.10 K/uL Nucleated Red Blood Cells % 3.2 % Large Platelets 1+ Sodium Level 136 mmol/L Potassium Level 2.8 mmol/L Chloride Level 98 mmol/L Carbon Dioxide Level 30 mmol/L Anion Gap 8.0 mmol/L Blood Urea Nitrogen 21 mg/dl Creatinine 0.91 mg/dl Est Creatinine Clear Calc Drug Dose 74.3 ml/min Estimated GFR () 97.2 Estimated GFR (Non- 83.9 BUN/Creatinine Ratio 23.1 Random Glucose 131 mg/dl Estimated Average Glucose 117 mg/dl Hemoglobin A1c 5.7 % Calcium Level 7.2 mg/dl Impression Patient is a 71 year old male with weakness, weight loss, & melena found to have significant anemia that has declined by 5 gm since March 2017. Patient denies alcohol use as of recently, but differential certainly includes esophageal varices, gastric ulcers, malignancy vs other. Plan 1) EGD today for further evaluation of anemia & melena. 2) Continue to monitor H/H & monitor for further signs of GI bleeding. 3) Continue Protonix infusion at present. 4) Supportive care per primary team. Suspect patient will need hefty social work intervention if he is agreeable. Thank you for allowing us to participate in the care of this patient. If you should have any further questions or concerns, do not hesitate to contact us. Agree with YARIEL Bejarano as above Abd: Soft, NT, ND, +BS Continue IV Protonix gtt at present EGD now for further evaluation.
[2017-05-22] MEDS: AMLODIPINE BESYLATE 5 MG TAB PO SCH (09:17)
[2017-05-22] MEDS ORDERED: MIDAZOLAM HCL 1 MG/ML 2ML VIAL ONE (11:48)
[2017-05-22] MEDS ORDERED: ONDANSETRON INJ 2 MG/ML 2 ML VIAL ONE (11:50)
[2017-05-22] MEDS ORDERED: LIDOCAINE HCL 2% 2 ML VIAL (20MG/ML) ONE (11:50)
[2017-05-22] MEDS ORDERED: PROPOFOL IV EMULSION 10 MG/ML 20 ML VIAL IV ONE (11:50)
[2017-05-22] MEDS ORDERED: ATROPINE SULFATE 0.1 MG/ML 5ML SYR IV PRN (12:00)
[2017-05-22] MEDS ORDERED: EpHEDrine SULFATE INJ 50 MG/ML AMP IV PRN (12:00)
[2017-05-22] MEDS ORDERED: PHENYLEPHRINE 100MCG/ML 5ML SYR ONE (12:34)
--- NOTE | 2017-05-22 12:40 | Anesthesiology Progress Note ---
Anesthesia Post Op Note Date & Time May 22, 2017 at 12:40 Vital Signs Pain Intensity: 0.0 Vital Signs Past 12 Hours Date Time Temp Pulse Resp B/P (MAP) Pulse Ox O2 Delivery O2 Flow Rate FiO2 05/22/17 11:47 37.3 91 20 138/79 (98) 97 Room Air 05/22/17 11:34 36.8 89 20 126/72 98 Room Air 05/22/17 11:10 36.8 89 20 126/72 (90) 98 Room Air 05/22/17 09:10 Room Air 05/22/17 08:00 Room Air 05/22/17 07:40 36.6 93 20 151/82 (105) 98 Room Air 05/22/17 06:35 37.0 90 18 125/80 98 05/22/17 05:30 37.0 87 18 119/74 97 05/22/17 05:04 36.9 89 18 117/74 98 05/22/17 04:45 37.0 91 18 117/76 (90) 97 Room Air 05/22/17 04:00 Room Air 05/22/17 03:53 36.6 89 18 156/74 (101) 99 05/22/17 01:53 36.9 87 18 105/66 98 05/22/17 01:30 36.9 75 18 101/59 99 Notes Mental Status: alert / awake / arousable, participated in evaluation Pt Amnestic to Procedure: Yes Nausea / Vomiting: adequately controlled Pain: adequately controlled Airway Patency, RR, SpO2: stable & adequate BP & HR: stable & adequate Hydration State: stable & adequate Anesthetic Complications: no major complications apparent
--- NOTE | 2017-05-22 13:48 | Medical Student: [facility] ---
Med Student History & Physical Date & Time of Service: May 22, 2017 at 13:31 Chief Complaint: Gi Bleed Primary Care Physician: Rigo Mehta M.D. History of Present Illness Source: patient, family Patient is a 71-year-old man who presented to the ED by ambulance yesterday () with severe weakness. He was found on the floor covered in a blanket with dried dark stool all over his lower half yesterday afternoon and was brought in immediately. Patient states that he has been feeling profoundly weak in his legs for the last 10 days and that he has been unable to drive to go get food. He has been getting around his house by crawling, and hasn't eaten anything in the last three days. He has a history of GI bleed, HTN, anemia, and B12 and folate deficiencies. His H&H in the ED were 7.2/21.2, which is a 5 mg drop from his last H&H check in March. His PCP, Dr. Mehta, had recommended an EGD and colonoscopy at that point, but the patient refused (last known colonoscopy was in 2009 and was normal). He was also treated by Dr. Mehta for B12 and folate deficiencies. He states that he has not had any alcohol for three weeks, but his sisters found a few empty bottles of gin in his apartment. He was profoundly dehydrated and received IV fluids along with 2 units of PRBCs. Of note, his potassium and magnesium were both low, and his calcium was 7.2. Stool was +guaiac. Today he is feeling about the same -- still weak, and very hungry (he asked me several times during our chat if he could have something to eat). The plan is to do an EGD this morning and to proceed with colonoscopy if this is not diagnostic. Denies N/V, chest pain, palpitations. Past Medical/Surgical History Medical Problems: (1) Acute weakness Status: Acute (2) Anemia Status: Acute (3) Fatigue Status: Acute (4) Hypokalemia Status: Acute (5) Hypomagnesemia Status: Acute (6) Hypomagnesemia Status: Acute Social History Smoking Status: Never Smoker Alcohol Use: none (none in the last three weeks) Drug Use: none Marital Status: single Occupational Status: unemployed Allergies Coded Allergies: Poison Karla Extract/Poison [place] Extra (Unverified Allergy, Intermediate, ITCH, 05/21/17) Medications Amlodipine (Norvasc), 2.5 MG PO DAILY Metoprolol Tartrate (Lopressor) (Lopressor), 50 MG PO Q12H Review of Systems Constitutional: No fever, No chills, No sweats Respiratory: + shortness of breath, No cough, No sputum Abdomen: + diarrhea, No pain, No nausea, No vomiting Genitourinary - Male: No dysuria Neurologic: + weakness, No numbness/tingling Endocrine: + fatigue Hematologic / Lymphatic: + abnormal bleeding/bruising Integumentary: No rash, No itch Physical Exam Vital Signs (24 Hours) Date Time Temp Pulse Resp B/P (MAP) Pulse Ox O2 Delivery O2 Flow Rate FiO2 05/22/17 12:56 87 16 114/70 (85) 93 Room Air 05/22/17 12:45 87 16 95/57 (70) 94 Room Air 05/22/17 12:35 87 16 136/84 (101) 94 Room Air 05/22/17 11:47 37.3 91 20 138/79 (98) 97 Room Air 05/22/17 11:34 36.8 89 20 126/72 98 Room Air 05/22/17 11:10 36.8 89 20 126/72 (90) 98 Room Air 05/22/17 09:10 Room Air 05/22/17 08:00 Room Air 05/22/17 07:40 36.6 93 20 151/82 (105) 98 Room Air 05/22/17 06:35 37.0 90 18 125/80 98 05/22/17 05:30 37.0 87 18 119/74 97 05/22/17 05:04 36.9 89 18 117/74 98 05/22/17 04:45 37.0 91 18 117/76 (90) 97 Room Air 05/22/17 04:00 Room Air 05/22/17 03:53 36.6 89 18 156/74 (101) 99 05/22/17 01:53 36.9 87 18 105/66 98 05/22/17 01:30 36.9 75 18 101/59 99 05/22/17 00:30 36.9 81 16 96/57 100 05/22/17 00:18 38.2 100 20 129/76 (93) 98 05/22/17 00:00 36.9 80 18 94/57 99 05/21/17 23:59 Room Air 05/21/17 23:45 36.8 82 18 119/64 99 05/21/17 23:08 Room Air 05/21/17 22:24 37.9 108 18 145/85 (105) 99 Room Air 05/21/17 20:38 107 21 136/71 100 05/21/17 20:00 113 17 131/72 100 Room Air 05/21/17 19:30 111 19 136/72 98 Room Air 05/21/17 18:55 112 24 120/58 100 Room Air 05/21/17 18:33 111 22 98 05/21/17 18:03 96 17 98 05/21/17 17:33 109 21 98 05/21/17 16:40 147/76 05/21/17 16:35 110 18 147/76 95 Room Air 05/21/17 16:35 95 Room Air General Appearance: WD/WN, + mild distress Head: normocephalic, atraumatic Eyes: EOMI ENT: + pertinent finding (dry mucous membranes) Neck: supple, no adenopathy Respiratory/Chest: chest non-tender, lungs clear, normal breath sounds Cardiovascular: regular rate, rhythm, no edema Abdomen/GI: normal bowel sounds, non tender, soft Extremities/Musculoskelatal: no calf tenderness Neurologic/Psych: alert, + depressed affect Skin: + pallor Diagnostics Laboratory Results Results Past 24 Hours Test 05/21/17 17:00 05/21/17 17:52 05/21/17 18:34 05/21/17 20:37 Range/Units Urine Color DK YELLOW Urine Appearance TURBID CLEAR Urine pH 5.5 4.5-7.5 Urine Specific [place] 1.028 1.000-1.030 Urine Protein 1+ NEG Urine Glucose (UA) 3+ NEG Urine Ketones 1+ NEG Urine Occult Blood TRACE NEG Urine Nitrite POS NEG Urine Bilirubin NEG NEG Urine Urobilinogen POS NEG Urine Leukocyte Esterase SMALL NEG Urine WBC (Auto) 10-30 0-5 /hpf Urine RBC (Auto) 5-10 0-4 /hpf Urine Hyaline Casts (Auto) 10-30 0-5 /lpf Urine Epithelial Cells (Auto) 0-5 0-5 /lpf Urine Bacteria (Auto) NEG NEG White Blood Count 2.57 4.8-10.8 K/uL Red Blood Count 2.27 4.7-6.1 M/uL Hemoglobin 7.2 14.0-18.0 g/dL Hematocrit 21.2 42-52 % Mean Corpuscular Volume 93.4 80-100 fL Mean Corpuscular Hemoglobin 31.7 25-34 pg Mean Corpuscular Hemoglobin Concent 34.0 32-36 g/dl Platelet Count 114 130-400 K/uL Mean Platelet Volume 9.7 7.4-10.4 fL Neutrophils (%) (Auto) 66.9 % Lymphocytes (%) (Auto) 16.7 % Monocytes (%) (Auto) 10.5 % Eosinophils (%) (Auto) 0.4 % Basophils (%) (Auto) 0.8 % Neutrophils # (Auto) 1.72 1.4-6.5 K/uL Lymphocytes # (Auto) 0.43 1.2-3.4 K/uL Monocytes # (Auto) 0.27 0.11-0.59 K/uL Eosinophils # (Auto) 0.01 0-0.5 K/uL Basophils # (Auto) 0.02 0-0.2 K/uL RDW Standard Deviation 48.7 36.4-46.3 fL RDW Coefficient of Variation 14.5 11.5-14.5 % Immature Granulocyte % (Auto) 4.7 % Immature Granulocyte # (Auto) 0.12 0.00-0.02 K/uL Nucleated RBC Absolute Count (auto) 0.07 0-0 K/uL Nucleated Red Blood Cells % 2.8 % Dohle Bodies OCCASIONAL Large Platelets 1+ Polychromasia 1+ Anisocytosis PRESENT Prothrombin Time 11.9 9.0-12.0 SECONDS Prothromb Time International Ratio 1.1 0.9-1.1 Activated Partial Thromboplast Time 26.2 21.0-31.0 SECONDS Partial Thromboplastin Ratio 1.0 Sodium Level 138 136-145 mmol/L Potassium Level 2.5 3.5-5.1 mmol/L Chloride Level 97 98-107 mmol/L Carbon Dioxide Level 32 21-32 mmol/L Anion Gap 8.0 3-11 mmol/L Blood Urea Nitrogen 24 7-18 mg/dl Creatinine 0.98 0.60-1.40 mg/dl Est Creatinine Clear Calc Drug Dose 68.0 ml/min Estimated GFR () 88.9 Estimated GFR (Non- 76.7 BUN/Creatinine Ratio 24.5 10-20 Random Glucose 207 70-99 mg/dl Calcium Level 8.1 8.5-10.1 mg/dl Magnesium Level 1.5 1.8-2.4 mg/dl Total Bilirubin 0.5 0.2-1 mg/dl Direct Bilirubin 0.3 0-0.2 mg/dl Aspartate Amino Transf (AST/SGOT) 23 15-37 U/L Alanine Aminotransferase (ALT/SGPT) 21 12-78 U/L Alkaline Phosphatase 94 45-117 U/L Total Creatine Kinase 90 39-308 U/L Creatine Kinase MB 2.1 0.5-3.6 ng/ml Creatine Kinase MB Ratio 2.3 0-3.0 Troponin I < 0.015 0-0.045 ng/ml Total Protein 6.1 6.4-8.2 gm/dl Albumin 2.0 3.4-5.0 gm/dl Globulin 4.1 2.5-4.0 gm/dl Albumin/Globulin Ratio 0.5 0.9-2 Lipase 365 73-393 U/L Ethyl Alcohol mg/dL < 3.0 0-3 mg/dl Total Iron Binding Capacity 140 250-450 mcg/dl Ferritin 1296.3 8.0-388.0 ng/ml Vitamin B12 Level 938 211-911 pg/mL Folate 7.26 >5.38 ng/mL Test 05/21/17 23:24 05/22/17 02:58 05/22/17 06:33 05/22/17 08:30 Range/Units Bedside Glucose 250 160 70-99 mg/dl White Blood Count 2.98 4.8-10.8 K/uL Red Blood Count 2.50 4.7-6.1 M/uL Hemoglobin 7.7 8.8 14.0-18.0 g/dL Hematocrit 22.5 25.8 42-52 % Mean Corpuscular Volume 90.0 80-100 fL Mean Corpuscular Hemoglobin 30.8 25-34 pg Mean Corpuscular Hemoglobin Concent 34.2 32-36 g/dl Platelet Count 102 130-400 K/uL Mean Platelet Volume 10.0 7.4-10.4 fL Neutrophils (%) (Auto) 66.2 % Lymphocytes (%) (Auto) 21.8 % Monocytes (%) (Auto) 9.4 % Eosinophils (%) (Auto) 0.3 % Basophils (%) (Auto) 0.3 % Neutrophils # (Auto) 1.97 1.4-6.5 K/uL Lymphocytes # (Auto) 0.65 1.2-3.4 K/uL Monocytes # (Auto) 0.28 0.11-0.59 K/uL Eosinophils # (Auto) 0.01 0-0.5 K/uL Basophils # (Auto) 0.01 0-0.2 K/uL RDW Standard Deviation 50.6 36.4-46.3 fL RDW Coefficient of Variation 15.6 11.5-14.5 % Immature Granulocyte % (Auto) 2.0 % Immature Granulocyte # (Auto) 0.06 0.00-0.02 K/uL Nucleated RBC Absolute Count (auto) 0.10 0-0 K/uL Nucleated Red Blood Cells % 3.2 % Large Platelets 1+ Sodium Level 136 136 136-145 mmol/L Potassium Level 2.8 3.2 3.5-5.1 mmol/L Chloride Level 98 99 98-107 mmol/L Carbon Dioxide Level 30 29 21-32 mmol/L Anion Gap 8.0 8.0 3-11 mmol/L Blood Urea Nitrogen 21 18 7-18 mg/dl Creatinine 0.91 0.83 0.60-1.40 mg/dl Est Creatinine Clear Calc Drug Dose 74.3 81.5 ml/min Estimated GFR () 97.2 101.9 Estimated GFR (Non- 83.9 87.9 BUN/Creatinine Ratio 23.1 21.2 10-20 Random Glucose 131 158 70-99 mg/dl Estimated Average Glucose 117 mg/dl Hemoglobin A1c 5.7 4.5-5.6 % Calcium Level 7.2 7.3 8.5-10.1 mg/dl Magnesium Level 2.0 1.8-2.4 mg/dl Impression Assessment and Plan Assessment/plan: This is a 71 year old man who was brought to the ED yesterday with profound weakness and fatigue, along with dark tarry stools. DDx includes upper GI bleed , lower GI bleed, malignancy, celiac disease, infectious process, AV malformation, PUD. Primary: GI bleed -Continue IV fluids, NPO -Repeat H&H - transfuse if necessary (already received 2 units of PRBCs) -GI consult: EGD this morning - follow with colonoscopy if necessary -Per GI - Protonix infusion UA was positive - given ceftriaxone, await culture Hypokalemia and hypomagnesemia - Labs - low K and Mg - replace IV Advanced Directives Existing Living Will: No Existing Power of Domain Architect: No
--- NOTE | 2017-05-22 17:43 | Progress Note ---
Subjective Date of Service: May 22, 2017. Subjective Pt evaluation today including: conversation w/ patient, conversation w/ family , physical exam, chart review, lab review, review of inpatient medication list feeling ok eating jello - no pain no nausea no vomiting no cp no sob asks questions about the severity of his situation sisters present who also ask numerous very good questions - all answered to the best of my ability current living situation sounds tenuous at best, unsafe overall Problem List Medical Problems: (1) Acute weakness Status: Acute (2) Anemia Status: Acute (3) Fatigue Status: Acute (4) Hypokalemia Status: Acute (5) Hypomagnesemia Status: Acute (6) Hypomagnesemia Status: Acute Review of Systems all other ROS otherwise negative except for as above Objective Vital Signs Date Time Temp Pulse Resp B/P (MAP) Pulse Ox O2 Delivery O2 Flow Rate FiO2 05/22/17 16:33 36.5 94 18 115/72 (86) 95 Room Air 05/22/17 14:20 89 16 120/69 (86) 97 Room Air 05/22/17 14:05 88 16 120/72 (88) 95 Room Air 05/22/17 13:50 86 16 121/73 (89) 95 Room Air 05/22/17 13:35 89 18 120/73 (89) 98 Room Air 05/22/17 13:20 89 18 113/68 (83) 98 Room Air 05/22/17 12:56 87 16 114/70 (85) 93 Room Air 05/22/17 12:45 87 16 95/57 (70) 94 Room Air 05/22/17 12:35 87 16 136/84 (101) 94 Room Air 05/22/17 11:47 37.3 91 20 138/79 (98) 97 Room Air 05/22/17 11:34 36.8 89 20 126/72 98 Room Air 05/22/17 11:10 36.8 89 20 126/72 (90) 98 Room Air 05/22/17 09:10 Room Air 05/22/17 08:00 Room Air 05/22/17 07:40 36.6 93 20 151/82 (105) 98 Room Air 05/22/17 06:35 37.0 90 18 125/80 98 05/22/17 05:30 37.0 87 18 119/74 97 05/22/17 05:04 36.9 89 18 117/74 98 05/22/17 04:45 37.0 91 18 117/76 (90) 97 Room Air 05/22/17 04:00 Room Air 05/22/17 03:53 36.6 89 18 156/74 (101) 99 05/22/17 01:53 36.9 87 18 105/66 98 05/22/17 01:30 36.9 75 18 101/59 99 05/22/17 00:30 36.9 81 16 96/57 100 05/22/17 00:18 38.2 100 20 129/76 (93) 98 05/22/17 00:00 36.9 80 18 94/57 99 05/21/17 23:59 Room Air 05/21/17 23:45 36.8 82 18 119/64 99 05/21/17 23:08 Room Air 05/21/17 22:24 37.9 108 18 145/85 (105) 99 Room Air 05/21/17 20:38 107 21 136/71 100 05/21/17 20:00 113 17 131/72 100 Room Air 05/21/17 19:30 111 19 136/72 98 Room Air 05/21/17 18:55 112 24 120/58 100 Room Air 05/21/17 18:33 111 22 98 05/21/17 18:03 96 17 98 Physical Exam General Appearance: no apparent distress Eyes: EOMI ENT: hearing grossly normal Neck: trachea midline Respiratory/Chest: no respiratory distress, no accessory muscle use 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, alert Skin: normal color, warm/dry Laboratory Results Last 24 Hours Test 05/21/17 17:52 05/21/17 18:34 05/21/17 20:37 05/21/17 23:24 White Blood Count 2.57 K/uL Red Blood Count 2.27 M/uL Hemoglobin 7.2 g/dL Hematocrit 21.2 % Mean Corpuscular Volume 93.4 fL Mean Corpuscular Hemoglobin 31.7 pg Mean Corpuscular Hemoglobin Concent 34.0 g/dl Platelet Count 114 K/uL Mean Platelet Volume 9.7 fL Neutrophils (%) (Auto) 66.9 % Lymphocytes (%) (Auto) 16.7 % Monocytes (%) (Auto) 10.5 % Eosinophils (%) (Auto) 0.4 % Basophils (%) (Auto) 0.8 % Neutrophils # (Auto) 1.72 K/uL Lymphocytes # (Auto) 0.43 K/uL Monocytes # (Auto) 0.27 K/uL Eosinophils # (Auto) 0.01 K/uL Basophils # (Auto) 0.02 K/uL RDW Standard Deviation 48.7 fL RDW Coefficient of Variation 14.5 % Immature Granulocyte % (Auto) 4.7 % Immature Granulocyte # (Auto) 0.12 K/uL Nucleated RBC Absolute Count (auto) 0.07 K/uL Nucleated Red Blood Cells % 2.8 % Dohle Bodies OCCASIONAL Large Platelets 1+ Polychromasia 1+ Anisocytosis PRESENT Prothrombin Time 11.9 SECONDS Prothromb Time International Ratio 1.1 Activated Partial Thromboplast Time 26.2 SECONDS Partial Thromboplastin Ratio 1.0 Sodium Level 138 mmol/L Potassium Level 2.5 mmol/L Chloride Level 97 mmol/L Carbon Dioxide Level 32 mmol/L Anion Gap 8.0 mmol/L Blood Urea Nitrogen 24 mg/dl Creatinine 0.98 mg/dl Est Creatinine Clear Calc Drug Dose 68.0 ml/min Estimated GFR () 88.9 Estimated GFR (Non- 76.7 BUN/Creatinine Ratio 24.5 Random Glucose 207 mg/dl Calcium Level 8.1 mg/dl Magnesium Level 1.5 mg/dl Total Bilirubin 0.5 mg/dl Direct Bilirubin 0.3 mg/dl Aspartate Amino Transf (AST/SGOT) 23 U/L Alanine Aminotransferase (ALT/SGPT) 21 U/L Alkaline Phosphatase 94 U/L Total Creatine Kinase 90 U/L Creatine Kinase MB 2.1 ng/ml Creatine Kinase MB Ratio 2.3 Troponin I < 0.015 ng/ml Total Protein 6.1 gm/dl Albumin 2.0 gm/dl Globulin 4.1 gm/dl Albumin/Globulin Ratio 0.5 Lipase 365 U/L Ethyl Alcohol mg/dL < 3.0 mg/dl Total Iron Binding Capacity 140 mcg/dl Ferritin 1296.3 ng/ml Vitamin B12 Level 938 pg/mL Folate 7.26 ng/mL Bedside Glucose 250 mg/dl Test 05/22/17 02:58 05/22/17 06:33 05/22/17 08:30 05/22/17 16:33 White Blood Count 2.98 K/uL Red Blood Count 2.50 M/uL Hemoglobin 7.7 g/dL 8.8 g/dL Hematocrit 22.5 % 25.8 % Mean Corpuscular Volume 90.0 fL Mean Corpuscular Hemoglobin 30.8 pg Mean Corpuscular Hemoglobin Concent 34.2 g/dl Platelet Count 102 K/uL Mean Platelet Volume 10.0 fL Neutrophils (%) (Auto) 66.2 % Lymphocytes (%) (Auto) 21.8 % Monocytes (%) (Auto) 9.4 % Eosinophils (%) (Auto) 0.3 % Basophils (%) (Auto) 0.3 % Neutrophils # (Auto) 1.97 K/uL Lymphocytes # (Auto) 0.65 K/uL Monocytes # (Auto) 0.28 K/uL Eosinophils # (Auto) 0.01 K/uL Basophils # (Auto) 0.01 K/uL RDW Standard Deviation 50.6 fL RDW Coefficient of Variation 15.6 % Immature Granulocyte % (Auto) 2.0 % Immature Granulocyte # (Auto) 0.06 K/uL Nucleated RBC Absolute Count (auto) 0.10 K/uL Nucleated Red Blood Cells % 3.2 % Large Platelets 1+ Sodium Level 136 mmol/L 136 mmol/L Potassium Level 2.8 mmol/L 3.2 mmol/L Chloride Level 98 mmol/L 99 mmol/L Carbon Dioxide Level 30 mmol/L 29 mmol/L Anion Gap 8.0 mmol/L 8.0 mmol/L Blood Urea Nitrogen 21 mg/dl 18 mg/dl Creatinine 0.91 mg/dl 0.83 mg/dl Est Creatinine Clear Calc Drug Dose 74.3 ml/min 81.5 ml/min Estimated GFR () 97.2 101.9 Estimated GFR (Non- 83.9 87.9 BUN/Creatinine Ratio 23.1 21.2 Random Glucose 131 mg/dl 158 mg/dl Estimated Average Glucose 117 mg/dl Hemoglobin A1c 5.7 % Calcium Level 7.2 mg/dl 7.3 mg/dl Bedside Glucose 160 mg/dl 299 mg/dl Magnesium Level 2.0 mg/dl Assessment and Plan GI Bleed/acute blood loss anemia - improved s/p transfusion 2 units - appears likely to have been from both gastritis and mass (pending full report from GI, but on signout from nursing, this appears to be the case) - continue protonix gtt for now, alejo change to either IV BID or possibly even PO BID by tomorrow depending on ongoing +/- bleeding - clear liquids - CT abd/pelvis to better clarify extent of mass and/or other lesions weight loss/failure to thrive -likely relates to above -nutritional support once able, social support Hypokalemia - improved. anticipate ongoing improvmeent w PO intake Hypomagnesemia - repleted hypocalcemia -check vitamin D Hyperglycemia - sliding scale Anemia (see above otherwise) - Normal MCV but wide RDW - Iron, B12, folate noted HTN - continue home blood pressure medications DVT prophylaxis - SCDs (pharmacologic obviously contraindicated due to bleeding) Full code dispo - PT/OT eval and treat. strongly anticipate SNF after medically stable for discharge
[2017-05-22] MEDS ORDERED: OPTIRAY 320 IV PRN (20:45)
--- NOTE | 2017-05-22 20:51 | DIAGNOSTIC IMAGING REPORT ---
ABDOMEN AND PELVIS CT WITH IV AND ORAL CONTRAST CT DOSE: 381.62 mGy.cm HISTORY: gastric mass, eval for extent, ?other lesions, ?evidence of mets TECHNIQUE: Multiaxial CT images of the abdomen and pelvis were performed following the use of intravenous and oral contrast. A dose lowering technique was utilized adhering to the principles of ALARA. COMPARISON STUDY: None. FINDINGS: Trace bilateral pleural effusions. Mild thickening of the distal esophagus. Mild dependent changes at the lung bases. No pneumoperitoneum. No pneumatosis. No suspicious lytic or blastic osseous lesions. Severe hepatic steatosis. No hepatic or splenic masses. The adrenal glands and gallbladder are unremarkable. No hydronephrosis. Subcentimeter hypodense lesions within the left kidney are too small to characterize. There are 2 cysts within the right kidney with the largest in the upper pole measuring 5.4 cm. Surgical clips noted at the umbilicus. Bladder is now well-distended but appears unremarkable. Small amount of ascites seen within the pelvis. No bowel wall thickening or obstruction. Multiple lobular low density areas surrounding the majority of the pancreas. There is incomplete enhancement of the pancreatic tail with encasement and possibly invasion of the pancreatic tail from the low density area/collections. Similar appearing focal low-density lesion within the small hiatus hernia which measures 5.1 x 2.6 cm. The low density area/lesion surrounding the pancreatic tail extends superiorly and abuts the greater curvature of the stomach. There is also suggestion of a septated low-density collection/lesion within the wall of the gastric fundus. This measures 3.8 x 3.5 cm. This may be contiguous with the low density area surrounding the pancreatic tail. 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 The low density collection adjacent to the pancreatic head measures 4 cm. IMPRESSION: 1. Multiple lobular low density areas surrounding the majority of the pancreas. There is incomplete enhancement of the pancreatic tail with encasement and possibly invasion of the pancreatic tail from the low density area/collections. Similar appearing focal low-density lesion within the small hiatus hernia which measures 5.1 x 2.6 cm. The low density area/lesion surrounding the pancreatic tail extends superiorly and abuts the greater curvature of the stomach. There is also suggestion of a septated low-density collection/lesion within the wall of the gastric fundus. This measures 3.8 x 3.5 cm. This may be contiguous with the low density area surrounding the pancreatic tail. This is nonspecific and could represent a neoplastic process or possibly multiple pseudocysts from prior pancreatitis. Endoscopy with biopsy of the gastric wall lesion is recommended. 2. 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 Electronically signed by: Sammy Phillips M.D. 05/23/2017 2:29 PM Dictated Date/Time: 05/22/2017 8:36 PM
--- NOTE | 2017-05-23 00:23 | GI REPORT ---
Procedure Date: 05/22/2017 12:04 PM Procedure: Upper GI endoscopy Indications: Acute post hemorrhagic anemia, Melena Medicines: Monitored Anesthesia Care Complications: No immediate complications. Estimated Blood Loss: Estimated blood loss: none. Procedure: Pre-Anesthesia Assessment: - Prior to the procedure, a History and Physical was performed, and patient medications and allergies were reviewed. The patient's tolerance of previous anesthesia was also reviewed. The risks and benefits of the procedure and the sedation options and risks were discussed with the patient. All questions were answered, and informed consent was obtained. Prior Anticoagulants: The patient has taken no previous anticoagulant or antiplatelet agents. ASA Grade Assessment: IV - A patient with severe systemic disease that is a constant threat to life. After reviewing the risks and benefits, the patient was deemed in satisfactory condition to undergo the procedure. After obtaining informed consent, the endoscope was passed under direct vision. Throughout the procedure, the patient's blood pressure, pulse, and oxygen saturations were monitored continuously. The scope was introduced through the mouth, and advanced to the second part of duodenum. The upper GI endoscopy was accomplished without difficulty. The patient tolerated the procedure well. Findings: A medium-sized, fungating mass with no bleeding and with no stigmata of recent bleeding was found at the gastroesophageal junction. The mass was non-obstructing and circumferential. Biopsies were taken with a cold forceps for histology. A medium-sized hiatus hernia was present. Localized mild inflammation characterized by erosions and erythema was found in the gastric antrum. Biopsies were taken with a cold forceps for histology. The examined duodenum was normal. 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 Biopsied. - Medium-sized hiatus hernia. - Gastritis. Biopsied. - Normal examined duodenum. Recommendation: - [facility] to [facility] for [facility] care. - Advance diet as tolerated. - Perform a CT scan (computed tomography) of chest with contrast, abdomen with contrast and pelvis with contrast tomorrow. - Continue present medications. Torin Godfrey DO 05/22/2017 12:42:43 PM This report has been signed electronically. Note Initiated On: 05/22/2017 12:04 PM I attest to the content of the Intraoperative Record and orders documented therein, exceptions below
[2017-05-23] MEDS: PANTOprazole INJ 40 MG in DEXTROSE 5% 100ML IV SCH ×2 (03:30→07:47)
[2017-05-23 03:49] VITALS: BP 128/78; PULSE 90; TEMP 37; O2SAT 97
[2017-05-23] MEDS: POTASSIUM CHLORIDE INJ 40 MEQ in SODIUM CHLORIDE 0.9% 1000ML 1,000 ML IV SCH ×2 (05:30→14:48)
[2017-05-23] MEDS ORDERED: NURSING VERBAL MED ORDER ONE (06:30)
[2017-05-23 07:15] LABS: HEMATOCRIT 25.9 % (42-52); MEAN CELL VOLUME 88.7 fL (80-100); MEAN CORPUSCULAR HEMOGLOBIN 30.1 pg (25-34); RED BLOOD COUNT 2.92 M/uL (4.7-6.1)
[2017-05-23 07:46] LABS: BUN/CREATININE RATIO 10.7 (10-20); CREATININE 0.99 mg/dl (0.60-1.40); POTASSIUM 3.6 mmol/L (3.5-5.1)
[2017-05-23] MEDS: CHOLESTYRAMINE LIGHT 4 GM PKT PO SCH ×2 (07:47→22:26)
[2017-05-23] MEDS: METOPROLOL TARTRATE 50 MG TAB PO SCH ×2 (07:47→20:25)
[2017-05-23] MEDS: AMLODIPINE BESYLATE 5 MG TAB PO SCH (07:48)
[2017-05-23] MEDS: INSULIN ASPART 100 UNITS/ML 3 ML PEN SC SCH ×4 (07:52→20:29)
[2017-05-23 07:58] LABS: BASO % 0.4 %; BASO ABS # 0.01 K/uL (0-0.2); COMPLETE YES; EOS % 0.4 %; IG% 1.2 %; LYMPH % 15.8 %; LYMPH ABS # 0.41 K/uL (1.2-3.4); MEAN PLATELET VOLUME 9.7 fL (7.4-10.4); MONO % 14.2 %; PLATELET COUNT 58 K/uL (130-400); PLT ESTIMATE DECREASED
[2017-05-23 08:00] VITALS: BP 106/70; PULSE 92; TEMP 37; O2SAT 99
[2017-05-23 08:00] LABS: BETA-HYDROXYBUTYRATE 0.68 mg/dL (0.2-2.81)
--- NOTE | 2017-05-23 09:55 | Gastroenterology Progress Note ---
Progress Note Date of Service: May 23, 2017 Subjective Pt evaluation today including: conversation w/ patient, physical exam, lab review, review of studies Patient is a 71 yo male who is hospitalized for weakness & melena. He underwent an EGD on 05/22 that indicated an esophageal mass. Biopsies were taken and are pending. A CT scan was subsequently performed and showed low density areas surrounding the majority of the pancreas and questionable encasement and invasion of the pancreatic tail. The patient reports he does not recall discussing these findings yesterday. He reports persistent weakness. He reports he is eating and tolerating a clear liquid diet well at the present time. He offers no further complaints at present. Review of Systems Constitutional: + weakness, No fever, No chills Eyes: No problem reported Respiratory: No cough, No shortness of breath, No dyspnea on exertion Cardiac: No chest pain Abdomen: No pain, No nausea, No vomiting, No diarrhea, No constipation Musculoskeletal: No joint pain Psych: No problem reported Skin: No problem reported Medications Current Inpatient Medications Medications (Trade) Dose Ordered Sig/Kell Route Start Time Stop Time Status Last Admin Dose Admin Acetaminophen (Tylenol Tab) 650 mg Q4H PRN PO 05/21/17 20:00 06/20/17 19:59 Amlodipine Besylate (Norvasc Tab) 2.5 mg DAILY PO 05/22/17 09:00 06/21/17 08:59 05/23/17 07:48 2.5 MG Metoprolol Tartrate (Lopressor Tab) 50 mg Q12H PO 05/21/17 21:00 06/20/17 20:59 05/23/17 07:47 50 MG Potassium Chloride 40 meq/ Sodium Chloride 1,020 ml @ 100 mls/hr [id number] IV 05/21/17 22:00 06/20/17 21:59 05/23/17 05:30 100 MLS/HR Insulin Aspart (novoLOG ASPART) SLIDING SCALE If C... ACHS SC 05/21/17 21:00 06/20/17 20:59 05/23/17 07:52 8 UNITS Glucose (Glucose 40% Gel) 15-30 GRAMS 15 GRAMS... UD PRN PO 05/21/17 21:30 06/20/17 21:29 Glucose (Glucose Chew Tab) 4-8 Tablets 4 Tabl... UD PRN PO 05/21/17 21:30 06/20/17 21:29 Dextrose (Dextrose 50% 50ML Syringe) 25-50ML OF 50% DW IV FOR... UD PRN IV 05/21/17 21:30 06/20/17 21:29 Glucagon (Glucagon Inj) 1 mg UD PRN SQ 05/21/17 21:30 06/20/17 21:29 Ioversol (Optiray 320) 116 ml UD PRN IV 05/22/17 20:45 05/26/17 20:44 Cholestyramine Resin (Questran Powder Light) 4 gm BID@1000,2200 PO 05/23/17 10:00 06/22/17 09:59 05/23/17 07:47 4 GM Pantoprazole Sodium (Protonix Tab) 40 mg BID PO 05/23/17 21:00 06/22/17 20:59 Ergocalciferol (Vitamin D Cap) 50,000 interunit Q7D@0900 PO 05/24/17 09:00 06/23/17 08:59 Cholecalciferol (Vitamin D Tab) 4,000 inter.unit QAM PO 05/24/17 09:00 06/23/17 08:59 Objective Vital Signs Date Time Temp Pulse Resp B/P (MAP) Pulse Ox O2 Delivery O2 Flow Rate FiO2 05/23/17 08:00 37.0 92 18 106/70 (82) 99 Room Air 05/23/17 04:00 Room Air 05/23/17 03:49 37.0 90 18 128/78 (95) 97 Room Air 05/23/17 00:00 Room Air 05/22/17 23:04 37.6 90 20 99/60 (73) 96 Room Air 05/22/17 20:00 Room Air 05/22/17 19:34 37.3 90 18 123/76 (92) 97 Room Air 05/22/17 16:33 36.5 94 18 115/72 (86) 95 Room Air 05/22/17 16:00 Room Air 05/22/17 14:20 89 16 120/69 (86) 97 Room Air 05/22/17 14:05 88 16 120/72 (88) 95 Room Air 05/22/17 13:50 86 16 121/73 (89) 95 Room Air 05/22/17 13:35 89 18 120/73 (89) 98 Room Air 05/22/17 13:20 89 18 113/68 (83) 98 Room Air 05/22/17 12:56 87 16 114/70 (85) 93 Room Air 05/22/17 12:45 87 16 95/57 (70) 94 Room Air 05/22/17 12:35 87 16 136/84 (101) 94 Room Air 05/22/17 11:47 37.3 91 20 138/79 (98) 97 Room Air 05/22/17 11:34 36.8 89 20 126/72 98 Room Air 05/22/17 11:10 36.8 89 20 126/72 (90) 98 Room Air Physical Exam General Appearance: WD/WN, no apparent distress Eyes: normal inspection, PERRL Respiratory/Chest: lungs clear Cardiovascular: regular rate, rhythm Abdomen: normal bowel sounds, non tender, soft Extremities: non-tender Neurologic/Psych: alert, oriented x 3 Skin: normal color Laboratory Results Last 24 Hours Test 05/22/17 16:33 05/22/17 21:23 05/23/17 06:56 Bedside Glucose 299 mg/dl 164 mg/dl White Blood Count 2.60 K/uL Red Blood Count 2.92 M/uL Hemoglobin 8.8 g/dL Hematocrit 25.9 % Mean Corpuscular Volume 88.7 fL Mean Corpuscular Hemoglobin 30.1 pg Mean Corpuscular Hemoglobin Concent 34.0 g/dl Platelet Count 58 K/uL Mean Platelet Volume 9.7 fL Neutrophils (%) (Auto) 68.0 % Lymphocytes (%) (Auto) 15.8 % Monocytes (%) (Auto) 14.2 % Eosinophils (%) (Auto) 0.4 % Basophils (%) (Auto) 0.4 % Neutrophils # (Auto) 1.77 K/uL Lymphocytes # (Auto) 0.41 K/uL Monocytes # (Auto) 0.37 K/uL Eosinophils # (Auto) 0.01 K/uL Basophils # (Auto) 0.01 K/uL RDW Standard Deviation 57.1 fL RDW Coefficient of Variation 17.7 % Immature Granulocyte % (Auto) 1.2 % Immature Granulocyte # (Auto) 0.03 K/uL Nucleated RBC Absolute Count (auto) 0.06 K/uL Nucleated Red Blood Cells % 2.4 % Platelet Estimate DECREASED Red Blood Cell Morphology Unremarkable Sodium Level 137 mmol/L Potassium Level 3.6 mmol/L Chloride Level 101 mmol/L Carbon Dioxide Level 28 mmol/L Anion Gap 7.0 mmol/L Blood Urea Nitrogen 11 mg/dl Creatinine 0.99 mg/dl Est Creatinine Clear Calc Drug Dose 70.9 ml/min Estimated GFR () 87.8 Estimated GFR (Non- 75.8 BUN/Creatinine Ratio 10.7 Random Glucose 320 mg/dl Calcium Level 7.0 mg/dl 25-Hydroxy Vitamin D Total 5.4 ng/ml Beta-Hydroxybutyric Acid 0.68 mg/dL Assessment and Plan Patient is a 71 yo male who underwent an EGD that indicated an esophageal mass. CT indicates pancreatic abnormalities as well. 1) Protonix 40 mg BID. 2) Await pathology results. 3) Anticipate Oncology consultation pending results of pathology. 4) Supportive care per primary team. Thank you for allowing us to participate in the care of this patient. If you should have any further questions or concerns, do not hesitate to contact us. Agree with YARIEL Bejarano as above Abd: Soft, NT, ND, +BS Reviewed CT scan, will consider repeat EGD following return of Pathology, however, Cardia was examined on EGD yesterday and no evidence of mass on forward or retroflexed views Continue current therapy.
[2017-05-23 12:00] VITALS: BP 127/76; PULSE 78; TEMP 36.9; O2SAT 98
[2017-05-23 14:15] VITALS: BP 127/76; PULSE 78; TEMP 36.9; O2SAT 98
[2017-05-23 15:03] VITALS: BP 116/70; PULSE 83; TEMP 37; O2SAT 96
--- NOTE | 2017-05-23 15:48 | DIAGNOSTIC IMAGING REPORT ---
(CHEST) THORAX WITHOUT CT DOSE: 216.59 mGy.cm CLINICAL HISTORY: 71 years-old Male with esophageal CA, eval for extent and mets. History of esophageal cancer. Screening study for possible metastasis. TECHNIQUE: Multiaxial CT images of the chest were performed without contrast. A dose lowering technique was utilized adhering to the principles of ALARA. COMPARISON: CT abdomen and pelvis 05/22/2017. FINDINGS: Thyroid appears mildly atrophic without dominant nodule identified. There are scattered nonenlarged lymph nodes about the chest without pathologically enlarged lymph nodes identified. Cardiac silhouette is mildly enlarged with coronary arterial calcifications. There is atherosclerosis of the thoracic aorta. No aneurysm identified. There are small bilateral pleural effusions. There is no pneumothorax or focal airspace consolidation. Linear subsegmental opacities of the bilateral lower lobe suggest areas of scarring and/or atelectasis. Subsegmental catheter granuloma the right lower lobe is noted. There is mild biapical pleural-parenchymal scarring, right greater the left. 3 mm pleural-based pulmonary nodule is present within the apical segment right upper lobe, image 28 series 4 which also suggests scarring. No suspicious pulmonary nodules are identified. Central airways are patent. Severe fatty infiltration of the liver. Inflammatory changes of the upper abdomen again seen with fluid surrounding the proximal stomach and also within the lesser sac. Lobulated low attenuating collection within the retrocrural space into the esophageal hiatus measures up to 5.6 x 2.9 x 3.9 cm. There is circumferential wall thickening with stranding inflammatory stranding of the mid and distal portions of the esophagus as well as within the region of the gastric cardia and imaged proximal stomach. Bilateral symmetric gynecomastia. The bones appear to be mildly demineralized. No suspicious lytic or blastic bony lesions to suggest metastasis. Multilevel bridging osteophytes of the spine are present. IMPRESSION: 1. Circumferential wall thickening of the mid and distal esophagus with surrounding inflammatory stranding is noted in addition to wall thickening and heterogeneity of the imaged proximal stomach, better evaluated on comparison CT abdomen and pelvis from 05/22/2017. These findings are suspicious for esophageal and/or possible gastric carcinoma. Correlate with endoscopy findings. 2. Lobulated low attenuating collection within the retrocrural space adjacent to the esophageal hiatus measuring up to 5.6 cm suggests loculated fluid extending from the abdomen. 3. Small bilateral pleural effusions with subsegmental bibasilar atelectasis. 4. Severe fatty infiltration of the liver. 5. No evidence of lymphatic or osseous metastasis. Electronically signed by: Joey Justice M.D. 05/23/2017 3:47 PM Dictated Date/Time: 05/23/2017 3:39 PM
[2017-05-23 16:02] VITALS: Ht 180.3 cm; Wt 74.3 kg
--- NOTE | 2017-05-23 19:02 | Progress Note ---
Subjective Date of Service: May 23, 2017. Subjective Pt evaluation today including: conversation w/ patient, conversation w/ family , physical exam, chart review, lab review, review of studies, review of inpatient medication list feeling ok no chest pain no abdominal pain tolerating clears well without nausea or pain extensive discussion with pt and family in regards to GI bleeding and treatment , as well as mass and further workup and next steps Problem List Medical Problems: (1) Acute weakness Status: Acute (2) Anemia Status: Acute (3) Fatigue Status: Acute (4) Hypokalemia Status: Acute (5) Hypomagnesemia Status: Acute (6) Hypomagnesemia Status: Acute Review of Systems all other ROS otherwise negative except for as above Objective Vital Signs Date Time Temp Pulse Resp B/P (MAP) Pulse Ox O2 Delivery O2 Flow Rate FiO2 05/23/17 15:03 37.0 83 18 116/70 (85) 96 Room Air 05/23/17 14:15 36.9 78 18 98 05/23/17 12:00 Room Air 05/23/17 12:00 36.9 78 18 127/76 (93) 98 Room Air 05/23/17 08:00 Room Air 05/23/17 08:00 37.0 92 18 106/70 (82) 99 Room Air 05/23/17 04:00 Room Air 05/23/17 03:49 37.0 90 18 128/78 (95) 97 Room Air 05/23/17 00:00 Room Air 05/22/17 23:04 37.6 90 20 99/60 (73) 96 Room Air 05/22/17 20:00 Room Air 05/22/17 19:34 37.3 90 18 123/76 (92) 97 Room Air Physical Exam General Appearance: no apparent distress Eyes: EOMI ENT: hearing grossly normal Neck: trachea midline Respiratory/Chest: no respiratory distress, no accessory muscle use Extremities: normal range of motion 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, alert, normal mood/affect Skin: normal color, warm/dry Laboratory Results Last 24 Hours Test 05/22/17 21:23 05/23/17 06:56 05/23/17 07:18 05/23/17 11:54 Bedside Glucose 164 mg/dl 339 mg/dl 176 mg/dl White Blood Count 2.60 K/uL Red Blood Count 2.92 M/uL Hemoglobin 8.8 g/dL Hematocrit 25.9 % Mean Corpuscular Volume 88.7 fL Mean Corpuscular Hemoglobin 30.1 pg Mean Corpuscular Hemoglobin Concent 34.0 g/dl Platelet Count 58 K/uL Mean Platelet Volume 9.7 fL Neutrophils (%) (Auto) 68.0 % Lymphocytes (%) (Auto) 15.8 % Monocytes (%) (Auto) 14.2 % Eosinophils (%) (Auto) 0.4 % Basophils (%) (Auto) 0.4 % Neutrophils # (Auto) 1.77 K/uL Lymphocytes # (Auto) 0.41 K/uL Monocytes # (Auto) 0.37 K/uL Eosinophils # (Auto) 0.01 K/uL Basophils # (Auto) 0.01 K/uL RDW Standard Deviation 57.1 fL RDW Coefficient of Variation 17.7 % Immature Granulocyte % (Auto) 1.2 % Immature Granulocyte # (Auto) 0.03 K/uL Nucleated RBC Absolute Count (auto) 0.06 K/uL Nucleated Red Blood Cells % 2.4 % Platelet Estimate DECREASED Red Blood Cell Morphology Unremarkable Sodium Level 137 mmol/L Potassium Level 3.6 mmol/L Chloride Level 101 mmol/L Carbon Dioxide Level 28 mmol/L Anion Gap 7.0 mmol/L Blood Urea Nitrogen 11 mg/dl Creatinine 0.99 mg/dl Est Creatinine Clear Calc Drug Dose 70.9 ml/min Estimated GFR () 87.8 Estimated GFR (Non- 75.8 BUN/Creatinine Ratio 10.7 Random Glucose 320 mg/dl Calcium Level 7.0 mg/dl 25-Hydroxy Vitamin D Total 5.4 ng/ml Beta-Hydroxybutyric Acid 0.68 mg/dL Test 05/23/17 17:45 Bedside Glucose 214 mg/dl Assessment and Plan GI Bleed/acute blood loss anemia - improved s/p transfusion 2 units - appears likely to have been from both gastritis and mass (pending full report from GI, but on signout from nursing, this appears to be the case) - change protonix to PO - stable for med surg, advance diet esophageal mass -CT chest to further stage -anticipate outpt PET and oncology f/u weight loss/failure to thrive -likely relates to above -nutritional support once able, social support Hypokalemia - improved. anticipate ongoing improvement w PO intake Hypomagnesemia - repleted hypocalcemia and D deficiency -replace vitamin D Hyperglycemia - sliding scale - sugars reasonable Anemia (see above otherwise) - Normal MCV but wide RDW - Iron, B12, folate noted - continue to follow now stable HTN - continue home blood pressure medications, readings reasonable DVT prophylaxis - SCDs (pharmacologic obviously contraindicated due to bleeding) Full code dispo - PT/OT eval and treat. strongly anticipate SNF after medically stable for discharge, stable for med surg
[2017-05-23 20:00] VITALS: BP 103/69; PULSE 90; TEMP 37.5; O2SAT 96
[2017-05-23] MEDS: PANTOprazole SOD 40 MG TAB PO SCH (20:24)
[2017-05-24 00:13] VITALS: BP 114/67; PULSE 88; TEMP 36.6; O2SAT 97
[2017-05-24] MEDS: POTASSIUM CHLORIDE INJ 40 MEQ in SODIUM CHLORIDE 0.9% 1000ML 1,000 ML IV SCH ×3 (01:43→22:45)
[2017-05-24 06:18] LABS: MEAN CELL VOLUME 89.9 fL (80-100); MEAN CORPUSCULAR HEMOGLOBIN 30.7 pg (25-34); MEAN CORPUSCULAR HGB CONC 34.2 g/dl (32-36); RED BLOOD COUNT 2.67 M/uL (4.7-6.1); WHITE BLOOD COUNT 2.29 K/uL (4.8-10.8)
[2017-05-24 07:00] LABS: BUN/CREATININE RATIO 12.2 (10-20); CALCIUM 6.5 mg/dl (8.5-10.1); CREATININE 0.59 mg/dl (0.60-1.40); POTASSIUM 4.3 mmol/L (3.5-5.1)
[2017-05-24 07:07] LABS: MEAN PLATELET VOLUME 9.9 fL (7.4-10.4); PLATELET COUNT 53 K/uL (130-400)
[2017-05-24 07:13] LABS: BASO % 0.4 %; BASO ABS # 0.01 K/uL (0-0.2); COMPLETE YES; EOS % 0.4 %; GIANT PLATELETS 1+; IG% 1.3 %; LYMPH % 18.8 %; LYMPH ABS # 0.43 K/uL (1.2-3.4); MONO % 14.8 %; NEUT % 64.3 %; PLT ESTIMATE DECREASED
[2017-05-24 07:15] VITALS: BP 151/79; PULSE 88; TEMP 37; O2SAT 100
[2017-05-24] MEDS: PANTOprazole SOD 40 MG TAB PO SCH ×2 (07:54→20:58)
[2017-05-24] MEDS: CHOLECALCIFEROL 1000 INTER.UNIT TAB PO SCH (07:54)
[2017-05-24] MEDS: METOPROLOL TARTRATE 50 MG TAB PO SCH ×2 (07:55→21:01)
[2017-05-24] MEDS: AMLODIPINE BESYLATE 5 MG TAB PO SCH (07:55)
[2017-05-24] MEDS: INSULIN ASPART 100 UNITS/ML 3 ML PEN SC SCH ×4 (07:58→21:10)
[2017-05-24 08:30] VITALS: O2SAT 100
[2017-05-24] MEDS ORDERED: ERGOCALCIFEROL 50,000 INTER.UNIT CAP PO SCH (09:00)
[2017-05-24] MEDS: CHOLESTYRAMINE LIGHT 4 GM PKT PO SCH ×2 (10:11→22:24)
[2017-05-24] MEDS ORDERED: ONDANSETRON INJ 8 MG in DEXTROSE 5% 50ML 50 ML IV ONE (14:10)
[2017-05-24 15:33] VITALS: BP 148/75; PULSE 88; TEMP 37; O2SAT 95
--- NOTE | 2017-05-24 17:11 | Progress Note ---
Subjective Date of Service: May 24, 2017. Subjective Pt evaluation today including: conversation w/ patient, conversation w/ family , physical exam, chart review, lab review, review of inpatient medication list feeling ok -- then at end of interview and exam starts vomiting - no pain ate OK last night and breakfast no appetite for lunch seems to feel full easily wonders why he's so weak - reupdated on all current dx's and plans no other new complaitns discussed bx results Problem List Medical Problems: (1) Acute weakness Status: Acute (2) Anemia Status: Acute (3) Fatigue Status: Acute (4) Hypokalemia Status: Acute (5) Hypomagnesemia Status: Acute (6) Hypomagnesemia Status: Acute Review of Systems all other ROS otherwise negative except for as above Objective Vital Signs Date Time Temp Pulse Resp B/P (MAP) Pulse Ox O2 Delivery O2 Flow Rate FiO2 05/24/17 16:00 Room Air 05/24/17 15:33 37.0 88 16 148/75 (99) 95 Room Air 05/24/17 08:30 100 Room Air 05/24/17 07:15 37.0 88 18 151/79 (103) 100 Room Air 05/24/17 00:13 36.6 88 18 114/67 (83) 97 Room Air 05/24/17 00:00 Room Air 05/23/17 20:00 37.5 90 20 103/69 (80) 96 Room Air 05/23/17 20:00 Room Air Physical Exam General Appearance: no apparent distress (at first resting comfortably, then vomiting) Eyes: EOMI ENT: hearing grossly normal Neck: trachea midline Respiratory/Chest: no respiratory distress, no accessory muscle use 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, alert, normal mood/affect Skin: normal color, warm/dry Laboratory Results Last 24 Hours Test 05/23/17 17:45 05/23/17 20:17 05/24/17 05:39 05/24/17 07:34 Bedside Glucose 214 mg/dl 202 mg/dl 140 mg/dl White Blood Count 2.29 K/uL Red Blood Count 2.67 M/uL Hemoglobin 8.2 g/dL Hematocrit 24.0 % Mean Corpuscular Volume 89.9 fL Mean Corpuscular Hemoglobin 30.7 pg Mean Corpuscular Hemoglobin Concent 34.2 g/dl Platelet Count 53 K/uL Mean Platelet Volume 9.9 fL Neutrophils (%) (Auto) 64.3 % Lymphocytes (%) (Auto) 18.8 % Monocytes (%) (Auto) 14.8 % Eosinophils (%) (Auto) 0.4 % Basophils (%) (Auto) 0.4 % Neutrophils # (Auto) 1.47 K/uL Lymphocytes # (Auto) 0.43 K/uL Monocytes # (Auto) 0.34 K/uL Eosinophils # (Auto) 0.01 K/uL Basophils # (Auto) 0.01 K/uL RDW Standard Deviation 57.3 fL RDW Coefficient of Variation 17.5 % Immature Granulocyte % (Auto) 1.3 % Immature Granulocyte # (Auto) 0.03 K/uL Nucleated RBC Absolute Count (auto) 0.05 K/uL Nucleated Red Blood Cells % 2.0 % Platelet Estimate DECREASED Giant Platelets 1+ Sodium Level 137 mmol/L Potassium Level 4.3 mmol/L Chloride Level 106 mmol/L Carbon Dioxide Level 25 mmol/L Anion Gap 6.0 mmol/L Blood Urea Nitrogen 7 mg/dl Creatinine 0.59 mg/dl Est Creatinine Clear Calc Drug Dose 118.9 ml/min Estimated GFR () 117.2 Estimated GFR (Non- 101.1 BUN/Creatinine Ratio 12.2 Random Glucose 153 mg/dl Calcium Level 6.5 mg/dl Test 05/24/17 11:21 05/24/17 16:32 Bedside Glucose 174 mg/dl 210 mg/dl Assessment and Plan GI Bleed/acute blood loss anemia - improved s/p transfusion 2 units - appears likely to have been from both gastritis and mass (pending full report from GI, but on signout from nursing, this appears to be the case) - stable on protonix PO esophageal mass -CT chest/abd/pelvis done -bx shows no malignancy - d/w GI relocation counselor and we are both in agreement given high likelihood tthat this is malignancy by his history/endoscopic and CT appearance - likely will need repeat EGD. with his other issues at play ( weakness, placemenet, etc) it would be preferable if GI is able to re-scope, re- biopsy prior to discharge from this hospitalization -anticipate outpt PET and oncology f/u nausea/vomiting -likely relates to above -zofran prn -upright after meals weight loss/failure to thrive -likely relates to all of above -nutritional support once able, social support Hypokalemia - improved. anticipate ongoing improvement w PO intake Hypomagnesemia - repleted hypocalcemia and D deficiency -replace vitamin D Hyperglycemia - sliding scale - sugars have been reasonable Anemia (see above otherwise) - Normal MCV but wide RDW - Iron, B12, folate noted - continue to follow now stable HTN - continue home blood pressure medications, readings have been reasonable DVT prophylaxis - SCDs (pharmacologic obviously contraindicated due to bleeding) Full code dispo - PT/OT eval and treat. strongly anticipate SNF after medically stable for discharge, stable on med surg
[2017-05-24 22:47] VITALS: BP 134/72; PULSE 87; TEMP 37.1; O2SAT 99
[2017-05-25 07:26] VITALS: BP 170/94; PULSE 84; TEMP 37.1; O2SAT 100
[2017-05-25] MEDS ORDERED: ONDANSETRON 4MG OD TAB PO PRN (07:45)
[2017-05-25] MEDS: CHOLECALCIFEROL 1000 INTER.UNIT TAB PO SCH (08:41)
[2017-05-25] MEDS: CALCIUM 600MG + VIT D 400 IU TAB PO SCH ×3 (08:41→17:04)
[2017-05-25] MEDS: AMLODIPINE BESYLATE 5 MG TAB PO SCH (08:42)
[2017-05-25] MEDS: METOPROLOL TARTRATE 50 MG TAB PO SCH ×2 (08:43→21:34)
[2017-05-25] MEDS: PANTOprazole SOD 40 MG TAB PO SCH ×2 (08:43→21:35)
[2017-05-25 08:45] VITALS: O2SAT 100
[2017-05-25] MEDS: INSULIN ASPART 100 UNITS/ML 3 ML PEN SC SCH ×4 (08:52→21:44)
[2017-05-25] MEDS: CHOLESTYRAMINE LIGHT 4 GM PKT PO SCH ×2 (10:48→21:44)
[2017-05-25 15:41] VITALS: BP 138/85; PULSE 85; TEMP 37.1; O2SAT 99
--- NOTE | 2017-05-25 18:41 | Progress Note ---
Subjective Date of Service: May 25, 2017. Subjective Pt evaluation today including: conversation w/ patient, conversation w/ family (revisited w family present), physical exam, chart review, lab review, review of inpatient medication list feeling ok no more vomiting doing well weakness not as bad, ok w repeat EGD/ biopsy - would prefer it to be done tre since cancer dx/prognosis/treatment options on hold until then Problem List Medical Problems: (1) Acute weakness Status: Acute (2) Anemia Status: Acute (3) Fatigue Status: Acute (4) Hypokalemia Status: Acute (5) Hypomagnesemia Status: Acute (6) Hypomagnesemia Status: Acute Review of Systems ROS otherwise unobtainable except for as above Objective Vital Signs Date Time Temp Pulse Resp B/P (MAP) Pulse Ox O2 Delivery O2 Flow Rate FiO2 05/25/17 16:45 Room Air 05/25/17 15:41 37.1 85 18 138/85 (102) 99 Room Air 05/25/17 08:45 100 Room Air 05/25/17 07:26 37.1 84 18 170/94 (119) 100 Room Air 05/25/17 00:00 Room Air 05/24/17 22:47 37.1 87 20 134/72 (92) 99 Room Air 05/24/17 20:00 Room Air Physical Exam General Appearance: no apparent distress Eyes: EOMI ENT: hearing grossly normal Neck: trachea midline Respiratory/Chest: no respiratory distress, no accessory muscle use Extremities: normal range of motion 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, alert, normal mood/affect Skin: normal color, warm/dry Laboratory Results Last 24 Hours Test 05/24/17 19:35 05/25/17 07:59 05/25/17 11:26 05/25/17 16:33 Bedside Glucose 175 mg/dl 193 mg/dl 214 mg/dl 143 mg/dl Assessment and Plan GI Bleed/acute blood loss anemia - improved s/p transfusion 2 units - appears likely to have been from both gastritis and mass (pending full report from GI, but on signout from nursing, this appears to be the case) - stable on protonix PO, no signs of repeat bleeding esophageal mass -CT chest/abd/pelvis done -bx shows no malignancy - d/w GI registration clerk and we are both in agreement given high likelihood that this is malignancy by his history/endoscopic and CT appearance - likely will need repeat EGD. with his other issues at play ( weakness, placemenet, etc) it would be preferable if GI is able to re-scope, re- biopsy prior to discharge from this hospitalization -- unable to clearly tell if this will be able to be done 05/26, and i discussed this with pt, but will place orders such as NPO p MN etc to try to facilitate this being done if at all possible -anticipate outpt PET and oncology f/u nausea/vomiting -likely relates to above -zofran prn -upright after meals -improved today weight loss/failure to thrive -likely relates to all of above -nutritional support once able, social support Hypokalemia - improved. anticipate ongoing improvement w PO intake Hypomagnesemia - repleted hypocalcemia and D deficiency -replacing vitamin D, consider repeat levels in 12wks depending on his overall status then Hyperglycemia - sliding scale - sugars have been reasonable Anemia (see above otherwise) - Normal MCV but wide RDW - Iron, B12, folate noted - continue to follow now stable HTN - continue home blood pressure medications, readings continue to be reasonable DVT prophylaxis - SCDs (pharmacologic obviously contraindicated due to bleeding) Full code dispo - PT/OT eval and treat. strongly anticipate SNF after medically stable for discharge, stable on med surg (ideally if repeat EGD can be done 05/26, then SNF - probably [facility], 05/27)
[2017-05-25 21:33] VITALS: BP 121/73; PULSE 90
[2017-05-25 22:44] VITALS: BP 143/82; PULSE 86; TEMP 36.6; O2SAT 98
[2017-05-26 07:16] VITALS: BP 153/81; PULSE 75; TEMP 36.9; O2SAT 98
[2017-05-26] MEDS: INSULIN ASPART 100 UNITS/ML 3 ML PEN SC SCH ×4 (07:43→20:32)
[2017-05-26] MEDS: CALCIUM 600MG + VIT D 400 IU TAB PO SCH ×3 (08:00→17:36)
--- NOTE | 2017-05-26 08:26 | Gastroenterology Progress Note ---
Progress Note Date of Service: May 26, 2017 Subjective Pt evaluation today including: conversation w/ patient, physical exam, lab review, review of studies Patient is a 71 yo male who was admitted for weakness & melena found to have an esophageal mass. Biopsies have returned but were rather unremarkable. The patient is awaiting a repeat EGD. He is unhappy that he is being kept NPO at the present time. He denies any new symptoms. He is upset that he is being kept NPO to the point where he threw the TV controller on his bed. He threatened to eat crackers on his bedside. I did inform him that he would not be able to have his procedure if he eats. Review of Systems Constitutional: + weakness Eyes: No problem reported Respiratory: No cough, No shortness of breath Cardiac: No chest pain Abdomen: No pain, No nausea, No vomiting, No diarrhea, No constipation, No GI bleeding Musculoskeletal: No joint pain Endo: + fatigue Skin: No problem reported Medications Current Inpatient Medications Medications (Trade) Dose Ordered Sig/Kell Route Start Time Stop Time Status Last Admin Dose Admin Acetaminophen (Tylenol Tab) 650 mg Q4H PRN PO 05/21/17 20:00 06/20/17 19:59 Amlodipine Besylate (Norvasc Tab) 2.5 mg DAILY PO 05/22/17 09:00 06/21/17 08:59 05/25/17 08:42 2.5 MG Metoprolol Tartrate (Lopressor Tab) 50 mg Q12H PO 05/21/17 21:00 06/20/17 20:59 05/25/17 21:34 50 MG Insulin Aspart (novoLOG ASPART) SLIDING SCALE If C... ACHS SC 05/21/17 21:00 06/20/17 20:59 05/25/17 21:44 3 UNITS Glucose (Glucose 40% Gel) 15-30 GRAMS 15 GRAMS... UD PRN PO 05/21/17 21:30 06/20/17 21:29 Glucose (Glucose Chew Tab) 4-8 Tablets 4 Tabl... UD PRN PO 05/21/17 21:30 06/20/17 21:29 Dextrose (Dextrose 50% 50ML Syringe) 25-50ML OF 50% DW IV FOR... UD PRN IV 05/21/17 21:30 06/20/17 21:29 Glucagon (Glucagon Inj) 1 mg UD PRN SQ 05/21/17 21:30 06/20/17 21:29 Ioversol (Optiray 320) 116 ml UD PRN IV 05/22/17 20:45 05/26/17 20:44 Cholestyramine Resin (Questran Powder Light) 4 gm BID@1000,2200 PO 05/23/17 10:00 06/22/17 09:59 05/24/17 22:24 4 GM Pantoprazole Sodium (Protonix Tab) 40 mg BID PO 05/23/17 20:00 06/22/17 20:59 05/25/17 21:35 40 MG Ergocalciferol (Vitamin D Cap) 50,000 interunit Q7D@0900 PO 05/24/17 09:00 06/23/17 08:59 05/24/17 07:55 50,000 INTERUNIT Cholecalciferol (Vitamin D Tab) 4,000 inter.unit QAM PO 05/24/17 08:00 06/23/17 08:59 05/25/17 08:41 4,000 INTER.UNIT Calcium/Vitamin D (Caltrate Plus Tab) 1 tab TIDM PO 05/25/17 08:00 06/24/17 07:59 05/25/17 17:04 1 TAB Ondansetron HCl (Zofran Odt) 4 mg Q4H PRN PO 05/25/17 07:45 06/24/17 07:44 05/25/17 09:20 4 MG Objective Vital Signs Date Time Temp Pulse Resp B/P (MAP) Pulse Ox O2 Delivery O2 Flow Rate FiO2 05/26/17 07:16 36.9 75 18 153/81 (105) 98 Room Air 05/26/17 00:00 Room Air 05/25/17 22:44 36.6 86 16 143/82 (102) 98 Room Air 05/25/17 21:33 90 121/73 (89) 05/25/17 20:00 Room Air 05/25/17 16:45 Room Air 05/25/17 15:41 37.1 85 18 138/85 (102) 99 Room Air 05/25/17 08:45 100 Room Air Physical Exam General Appearance: no apparent distress Eyes: normal inspection, PERRL Respiratory/Chest: lungs clear Cardiovascular: regular rate, rhythm Abdomen: normal bowel sounds, non tender, soft Extremities: non-tender Neurologic/Psych: alert, oriented x 3 Skin: normal color Laboratory Results Last 24 Hours Test 05/25/17 11:26 05/25/17 16:33 05/25/17 20:12 05/26/17 07:30 Bedside Glucose 214 mg/dl 143 mg/dl 192 mg/dl 115 mg/dl Assessment and Plan Patient is a 71 yo male who underwent an EGD that indicated an esophageal mass. CT indicates pancreatic abnormalities as well. Biopsies were unremarkable. 1) Protonix 40 mg BID. 2) Repeat EGD for further biopsies. 3) Supportive care per primary team. Thank you for allowing us to participate in the care of this patient. If you should have any further questions or concerns, do not hesitate to contact us. Agree with YARIEL Bejarano as above Abd: Soft, NT, ND, +BS Proceed with EGD
[2017-05-26] MEDS: CHOLESTYRAMINE LIGHT 4 GM PKT PO SCH ×2 (09:48→22:00)
[2017-05-26] MEDS: D5NSS + 20MEQ KCL 1,000 ML IV SCH ×2 (10:05→22:10)
[2017-05-26 10:11] VITALS: BP 153/81; PULSE 75; TEMP 36.9; O2SAT 98
[2017-05-26] MEDS ORDERED: EpHEDrine SULFATE INJ 50 MG/ML AMP IV PRN (11:30)
[2017-05-26] MEDS ORDERED: ATROPINE SULFATE 0.1 MG/ML 5ML SYR IV PRN (11:30)
[2017-05-26] MEDS ORDERED: PROPOFOL IV EMULSION 10 MG/ML 20 ML VIAL IV ONE (11:54)
[2017-05-26] MEDS ORDERED: LIDOCAINE HCL 2% 2 ML VIAL (20MG/ML) ONE (11:54)
[2017-05-26 12:50] VITALS: BP 161/84; PULSE 76
[2017-05-26] MEDS: AMLODIPINE BESYLATE 5 MG TAB PO SCH (12:55)
[2017-05-26] MEDS: METOPROLOL TARTRATE 50 MG TAB PO SCH ×2 (12:55→20:27)
[2017-05-26] MEDS: PANTOprazole SOD 40 MG TAB PO SCH ×2 (12:55→19:15)
[2017-05-26] MEDS: CHOLECALCIFEROL 1000 INTER.UNIT TAB PO SCH (12:55)
--- NOTE | 2017-05-26 12:56 | Anesthesiology Progress Note ---
Anesthesia Post Op Note Date & Time May 26, 2017 at 12:55 Vital Signs Pain Intensity: 0.0 Vital Signs Past 12 Hours Date Time Temp Pulse Resp B/P (MAP) Pulse Ox O2 Delivery O2 Flow Rate FiO2 05/26/17 12:50 76 161/84 (109) 05/26/17 12:40 68 20 138/63 (88) 96 Room Air 05/26/17 12:25 67 20 133/63 (86) 96 Room Air 05/26/17 12:15 70 20 118/59 (78) 96 Room Air 05/26/17 12:10 84 20 86/43 (57) 98 Room Air 05/26/17 10:41 36.4 89 20 154/84 (107) 98 Room Air 05/26/17 10:39 Room Air 05/26/17 10:11 36.9 75 18 153/81 98 Room Air 05/26/17 07:16 36.9 75 18 153/81 (105) 98 Room Air Notes Mental Status: alert / awake / arousable, participated in evaluation Pt Amnestic to Procedure: Yes Nausea / Vomiting: adequately controlled Pain: adequately controlled Airway Patency, RR, SpO2: stable & adequate BP & HR: stable & adequate Hydration State: stable & adequate Anesthetic Complications: no major complications apparent
--- NOTE | 2017-05-26 15:27 | Hospitalist Progress Note ---
Hospitalist Progress Note Date of Service May 26, 2017. Subjective Pt evaluation today including: conversation w/ patient, conversation w/ family (sister at bedside), physical exam, chart review, lab review, review of inpatient medication list Pain: None PO Intake: Tolerating PO diet Voiding: no voiding problems Patient complains of weakness especially since he had to be NPO for the EGD today. He did feel somewhat nauseous today after not eating for several hours but denies vomiting. He otherwise denies any complaints. The patient denies fevers, chills, sweats, chest pain, palpitations, claudication, cough, wheezing , shortness of breath, vomiting, abdominal pain, dysuria, hematuria, urinary retention, paralysis, weakness, numbness and tingling. Additional Comments: See HPI for pertinent positives and negatives. All other systems reviewed and negative. Objective Vital Signs Date Time Temp Pulse Resp B/P (MAP) Pulse Ox O2 Delivery O2 Flow Rate FiO2 05/26/17 12:50 76 161/84 (109) 05/26/17 12:40 68 20 138/63 (88) 96 Room Air 05/26/17 12:25 67 20 133/63 (86) 96 Room Air 05/26/17 12:15 70 20 118/59 (78) 96 Room Air 05/26/17 12:10 84 20 86/43 (57) 98 Room Air 05/26/17 10:41 36.4 89 20 154/84 (107) 98 Room Air 05/26/17 10:39 Room Air 05/26/17 10:11 36.9 75 18 153/81 98 Room Air 05/26/17 07:16 36.9 75 18 153/81 (105) 98 Room Air 05/26/17 00:00 Room Air 05/25/17 22:44 36.6 86 16 143/82 (102) 98 Room Air 05/25/17 21:33 90 121/73 (89) 05/25/17 20:00 Room Air 05/25/17 16:45 Room Air 05/25/17 15:41 37.1 85 18 138/85 (102) 99 Room Air Physical Exam Notes: General appearance: Well-developed, well-nourished, no apparent distress Head: Normocephalic, atraumatic Eyes: Normal inspection, PERRL, EOMI ENT: Normal ENT inspection, hearing grossly normal, pharynx normal Neck: Supple, no JVD, trachea midline Respiratory/Chest: Lungs clear to auscultation, normal breath sounds, no respiratory distress Cardiovascular: Regular rate & rhythm, no gallop, no murmur Abdomen/GI: Normal bowel sounds, non-tender, soft Extremities/Musculoskeletal: Normal inspection, no calf tenderness, no pedal edema Neurological/Psych: Alert, normal mood/affect, oriented x 3 Skin: Normal color, warm/dry, no rash Laboratory Results Last 24 Hours Test 05/25/17 16:33 05/25/17 20:12 05/26/17 07:30 05/26/17 09:02 Bedside Glucose 143 mg/dl 192 mg/dl 115 mg/dl 121 mg/dl Test 05/26/17 12:53 Bedside Glucose 97 mg/dl Assessment and Plan 71 y/o male with a history of anemia, folate and B12 deficiencies, HTN, and HLD who presents with melena, weakness, and weight loss. GI Bleed/acute blood loss anemia, h/o anemia, h/o folate and B12 deficiencies-- resolved, no more acute bleeding - Improved s/p transfusion 2 units - Hgb has remains stable - Folate and B12 WNL - Likely secondary from gastritis - EGD revealed fungating mass w/o bleeding or stigmata of recent bleeding at gastroesophageal junction. Medium hiatal hernia. Gastritis in antrum. - Continue Protonix 40 mg PO BID - Repeat EGD done 05/26 to obtain more biopsies, same findings Esophageal mass, likely malignant -CT chest, CT abd/pelvis reviewed -Bx shows no malignancy, however given convincing history and CT/endoscopic appearance, still highly likely to be malignancy -Repeat EGD done for more biopsies, pathology pending -Anticipate outpt PET and oncology f/u Nausea/vomiting--resolving -Likely relates to above -Zofran prn -Upright after meals Weight loss/failure to thrive -Likely relates to all of above, malignancy -Nutritional support once able, social support Hypokalemia--resolved Hypomagnesemia--resolved Hypocalcemia and D deficiency -Continue vitamin D supplement and Caltrate. -Consider repeat levels in 12wks depending on his overall status then Hyperglycemia--HgbA1c 5.7 on 05/22/17 -Insulin sliding scale -Check BSGs q ac and qhs HTN--stable -Continue Norvasc 2.5 mg PO qd and Lopressor 50 mg PO BID DVT prophylaxis -SCDs Dispo -Pt not safe to return home. Pt had not been willing to entertain placement until today per case management. Referral to [facility] placed -PT/OT eval pending. Patient had been refusing
[2017-05-26 15:40] VITALS: BP 128/75; PULSE 94; TEMP 37.3; O2SAT 97
[2017-05-27 00:09] VITALS: BP 123/75; PULSE 87; TEMP 37.1; O2SAT 99
[2017-05-27] MEDS: D5NSS + 20MEQ KCL 1,000 ML IV SCH (06:16)
[2017-05-27 07:29] VITALS: BP 134/70; PULSE 82; TEMP 36.9; O2SAT 99
[2017-05-27] MEDS: CALCIUM 600MG + VIT D 400 IU TAB PO SCH ×3 (08:28→17:01)
[2017-05-27] MEDS: AMLODIPINE BESYLATE 5 MG TAB PO SCH (08:28)
[2017-05-27] MEDS: PANTOprazole SOD 40 MG TAB PO SCH ×2 (08:28→21:26)
[2017-05-27] MEDS: CHOLECALCIFEROL 1000 INTER.UNIT TAB PO SCH (08:29)
[2017-05-27] MEDS: METOPROLOL TARTRATE 50 MG TAB PO SCH ×2 (08:29→21:26)
[2017-05-27] MEDS: INSULIN ASPART 100 UNITS/ML 3 ML PEN SC SCH ×4 (08:34→21:36)
[2017-05-27] MEDS: CHOLESTYRAMINE LIGHT 4 GM PKT PO SCH ×2 (08:35→21:27)
--- NOTE | 2017-05-27 11:59 | Hospitalist Progress Note ---
Hospitalist Progress Note Date of Service May 27, 2017. Subjective Pt evaluation today including: conversation w/ patient, physical exam, chart review, lab review, review of inpatient medication list Pain: None PO Intake: Tolerating PO diet Voiding: no voiding problems Patient reports feeling well. He feels that he is slowly getting stronger but still feels very weak in general. He is eating and sleeping well. He denies any trouble swallowing or pain with swallowing. He is now moving his bowels. The patient denies fevers, chills, sweats, chest pain, palpitations, claudication, cough, wheezing, shortness of breath, nausea, vomiting, abdominal pain, dysuria, hematuria, urinary retention, paralysis, weakness, numbness and tingling. Additional Comments: See HPI for pertinent positives and negatives. All other systems reviewed and negative. Objective Vital Signs Date Time Temp Pulse Resp B/P (MAP) Pulse Ox O2 Delivery O2 Flow Rate FiO2 05/27/17 09:59 Room Air 05/27/17 07:29 36.9 82 18 134/70 (91) 99 Room Air 05/27/17 02:00 Room Air 05/27/17 00:09 37.1 87 20 123/75 (91) 99 Room Air 05/26/17 16:00 Room Air 05/26/17 15:40 37.3 94 18 128/75 (92) 97 Room Air 05/26/17 12:50 76 161/84 (109) 05/26/17 12:40 68 20 138/63 (88) 96 Room Air 05/26/17 12:25 67 20 133/63 (86) 96 Room Air 05/26/17 12:15 70 20 118/59 (78) 96 Room Air 05/26/17 12:10 84 20 86/43 (57) 98 Room Air Physical Exam Notes: General appearance: Well-developed, well-nourished, no apparent distress Head: Normocephalic, atraumatic Eyes: Normal inspection, PERRL, EOMI ENT: Normal ENT inspection, hearing grossly normal, pharynx normal Neck: Supple, no JVD, trachea midline Respiratory/Chest: Lungs clear to auscultation, normal breath sounds, no respiratory distress Cardiovascular: Regular rate & rhythm, no gallop, no murmur Abdomen/GI: Normal bowel sounds, non-tender, soft Extremities/Musculoskeletal: Normal inspection, no calf tenderness, no pedal edema Neurological/Psych: Alert, normal mood/affect, oriented x 3 Skin: Normal color, warm/dry, no rash Laboratory Results Last 24 Hours Test 05/26/17 12:53 05/26/17 16:38 05/26/17 19:42 05/27/17 07:36 Bedside Glucose 97 mg/dl 235 mg/dl 175 mg/dl 198 mg/dl Test 05/27/17 11:21 Bedside Glucose 213 mg/dl Assessment and Plan 71 y/o male with a history of anemia, folate and B12 deficiencies, HTN, and HLD who presents with melena, weakness, and weight loss. GI Bleed/acute blood loss anemia, h/o anemia, h/o folate and B12 deficiencies-- resolved, no more acute bleeding - Improved s/p transfusion 2 units - Hgb has remains stable - Folate and B12 WNL - Likely secondary from gastritis - EGD revealed fungating mass w/o bleeding or stigmata of recent bleeding at gastroesophageal junction. Medium hiatal hernia. Gastritis in antrum. - Continue Protonix 40 mg PO BID - Repeat EGD done 05/26 to obtain more biopsies, same findings. Pathology pending Esophageal mass, likely malignant -CT chest, CT abd/pelvis reviewed -Bx shows no malignancy, however given convincing history and CT/endoscopic appearance, still highly likely to be malignancy -Repeat EGD done for more biopsies, pathology pending -Anticipate outpt PET and oncology f/u Nausea/vomiting--resolved -Likely relates to above -Zofran prn -Upright after meals Weight loss/failure to thrive -Likely relates to all of above, malignancy -Nutritional support once able, social support Hypokalemia--resolved Hypomagnesemia--resolved Hypocalcemia and D deficiency -Continue vitamin D supplement and Caltrate. -Consider repeat levels in 12wks depending on his overall status then Hyperglycemia--HgbA1c 5.7 on 05/22/17 -Insulin sliding scale -Check BSGs q ac and qhs HTN--stable -Continue Norvasc 2.5 mg PO qd and Lopressor 50 mg PO BID DVT prophylaxis -SCDs Dispo -Pt not safe to return home. -PT/OT recommend rehab. [facility] Awaiting determination/placement
[2017-05-27 14:50] VITALS: BP 128/75; PULSE 87; TEMP 36.8; O2SAT 100
[2017-05-27 23:55] VITALS: BP 137/76; PULSE 86; TEMP 37; O2SAT 98
[2017-05-28 08:18] VITALS: BP 109/68; PULSE 82; TEMP 37.1; O2SAT 100
[2017-05-28 08:39] LABS: BASO % 0.4 %; BASO ABS # 0.02 K/uL (0-0.2); COMPLETE YES; EOS % 0.7 %; HEMATOCRIT 29.5 % (42-52); IG% 0.5 %; LYMPH % 18.7 %; LYMPH ABS # 1.05 K/uL (1.2-3.4); MEAN CELL VOLUME 91.3 fL (80-100); MEAN CORPUSCULAR HGB CONC 32.9 g/dl (32-36); MEAN PLATELET VOLUME 9.8 fL (7.4-10.4); MONO % 6.2 %; NEUT % 73.5 %; PLATELET COUNT 234 K/uL (130-400); RED BLOOD COUNT 3.23 M/uL (4.7-6.1); WHITE BLOOD COUNT 5.63 K/uL (4.8-10.8)
[2017-05-28] MEDS: PANTOprazole SOD 40 MG TAB PO SCH ×2 (08:41→20:55)
[2017-05-28] MEDS: CALCIUM 600MG + VIT D 400 IU TAB PO SCH ×3 (08:41→17:50)
[2017-05-28] MEDS: CHOLECALCIFEROL 1000 INTER.UNIT TAB PO SCH (08:41)
[2017-05-28] MEDS: AMLODIPINE BESYLATE 5 MG TAB PO SCH (08:41)
[2017-05-28] MEDS: METOPROLOL TARTRATE 50 MG TAB PO SCH ×2 (08:42→20:54)
[2017-05-28] MEDS: INSULIN ASPART 100 UNITS/ML 3 ML PEN SC SCH ×4 (08:46→20:58)
[2017-05-28 09:00] LABS: BUN/CREATININE RATIO 12.3 (10-20); CREATININE 0.84 mg/dl (0.60-1.40); MAGNESIUM 1.3 mg/dl (1.8-2.4); POTASSIUM 3.3 mmol/L (3.5-5.1)
[2017-05-28] MEDS ORDERED: POTASSIUM CHLORIDE 20 MEQ TABCR PO ONE (09:15)
[2017-05-28] MEDS: CHOLESTYRAMINE LIGHT 4 GM PKT PO SCH ×2 (12:10→20:56)
--- NOTE | 2017-05-28 15:16 | Hospitalist Progress Note ---
Hospitalist Progress Note Date of Service May 28, 2017. Subjective Pt evaluation today including: conversation w/ patient, physical exam, chart review, lab review, review of studies, review of inpatient medication list Pain: None PO Intake: Tolerating PO diet Voiding: no voiding problems The patient reports feeling well. He is eating well and and feels that he is slowly getting his strength back. The patient denies fevers, chills, sweats, chest pain, palpitations, claudication, cough, wheezing, shortness of breath, nausea, vomiting, abdominal pain, dysuria, hematuria, urinary retention, paralysis, weakness, numbness and tingling. Additional Comments: See HPI for pertinent positives and negatives. All other systems reviewed and negative. Objective Vital Signs Date Time Temp Pulse Resp B/P (MAP) Pulse Ox O2 Delivery O2 Flow Rate FiO2 05/28/17 10:57 Room Air 05/28/17 08:18 37.1 82 18 109/68 (82) 100 05/28/17 01:00 Room Air 05/27/17 23:55 37.0 86 20 137/76 (96) 98 Room Air 05/27/17 16:00 Room Air Physical Exam Notes: General appearance: Well-developed, well-nourished, no apparent distress Head: Normocephalic, atraumatic Eyes: Normal inspection, PERRL, EOMI ENT: Normal ENT inspection, hearing grossly normal, pharynx normal Neck: Supple, no JVD, trachea midline Respiratory/Chest: Lungs clear to auscultation, normal breath sounds, no respiratory distress Cardiovascular: Regular rate & rhythm, no gallop, no murmur Abdomen/GI: Normal bowel sounds, non-tender, soft Extremities/Musculoskeletal: Normal inspection, no calf tenderness, no pedal edema Neurological/Psych: Alert, normal mood/affect, oriented x 3 Skin: Normal color, warm/dry, no rash Laboratory Results Last 24 Hours Test 05/27/17 16:23 05/27/17 19:54 05/28/17 08:11 05/28/17 08:21 Bedside Glucose 153 mg/dl 199 mg/dl 198 mg/dl White Blood Count 5.63 K/uL Red Blood Count 3.23 M/uL Hemoglobin 9.7 g/dL Hematocrit 29.5 % Mean Corpuscular Volume 91.3 fL Mean Corpuscular Hemoglobin 30.0 pg Mean Corpuscular Hemoglobin Concent 32.9 g/dl Platelet Count 234 K/uL Mean Platelet Volume 9.8 fL Neutrophils (%) (Auto) 73.5 % Lymphocytes (%) (Auto) 18.7 % Monocytes (%) (Auto) 6.2 % Eosinophils (%) (Auto) 0.7 % Basophils (%) (Auto) 0.4 % Neutrophils # (Auto) 4.14 K/uL Lymphocytes # (Auto) 1.05 K/uL Monocytes # (Auto) 0.35 K/uL Eosinophils # (Auto) 0.04 K/uL Basophils # (Auto) 0.02 K/uL RDW Standard Deviation 57.7 fL RDW Coefficient of Variation 17.4 % Immature Granulocyte % (Auto) 0.5 % Immature Granulocyte # (Auto) 0.03 K/uL Sodium Level 137 mmol/L Potassium Level 3.3 mmol/L Chloride Level 103 mmol/L Carbon Dioxide Level 27 mmol/L Anion Gap 7.0 mmol/L Blood Urea Nitrogen 10 mg/dl Creatinine 0.84 mg/dl Est Creatinine Clear Calc Drug Dose 83.5 ml/min Estimated GFR () 101.4 Estimated GFR (Non- 87.5 BUN/Creatinine Ratio 12.3 Random Glucose 216 mg/dl Calcium Level 8.0 mg/dl Magnesium Level 1.3 mg/dl Test 05/28/17 11:48 Bedside Glucose 186 mg/dl Assessment and Plan 71 y/o male with a history of anemia, folate and B12 deficiencies, HTN, and HLD who presents with melena, weakness, and weight loss. GI Bleed/acute blood loss anemia, h/o anemia, h/o folate and B12 deficiencies-- resolved, no more acute bleeding - Improved s/p transfusion 2 units - Hgb has remains stable - Folate and B12 WNL - Likely secondary from gastritis - EGD revealed fungating mass w/o bleeding or stigmata of recent bleeding at gastroesophageal junction. Medium hiatal hernia. Gastritis in antrum. - Continue Protonix 40 mg PO BID - Repeat EGD done 05/26 to obtain more biopsies, same findings Esophageal mass, likely malignant -CT chest, CT abd/pelvis reviewed -Bx shows no malignancy, however given convincing history and CT/endoscopic appearance, still highly likely to be malignancy -Repeat EGD done for more biopsies. Pathology again negative for dysplasia and malignancy. F/u with GI as an outpt for further evaluation of mass Nausea/vomiting--resolved -Likely relates to above -Zofran prn -Upright after meals Weight loss/failure to thrive -Likely relates to all of above, malignancy -Nutritional support once able, social support Hypokalemia--resolved Hypomagnesemia--resolved Hypocalcemia and D deficiency -Continue vitamin D supplement and Caltrate. -Consider repeat levels in 12wks depending on his overall status then Hyperglycemia--HgbA1c 5.7 on 05/22/17 -Insulin sliding scale -Check BSGs q ac and qhs HTN--stable -Continue Norvasc 2.5 mg PO qd and Lopressor 50 mg PO BID DVT prophylaxis -SCDs Dispo -Pt not safe to return home. -PT/OT recommend rehab -Accepted to [facility], insurance auth pending
[2017-05-28 15:27] VITALS: BP 150/77; PULSE 86; TEMP 37.1; O2SAT 98
[2017-05-28 16:02] VITALS: O2SAT 98
[2017-05-29 00:08] VITALS: BP 159/79; PULSE 83; TEMP 37.2; O2SAT 100
[2017-05-29 07:32] VITALS: BP 152/82; PULSE 82; TEMP 37; O2SAT 99
[2017-05-29] MEDS: METOPROLOL TARTRATE 50 MG TAB PO SCH ×2 (08:22→20:24)
[2017-05-29] MEDS: PANTOprazole SOD 40 MG TAB PO SCH ×2 (08:22→20:24)
[2017-05-29] MEDS: CHOLECALCIFEROL 1000 INTER.UNIT TAB PO SCH (08:22)
[2017-05-29] MEDS: CALCIUM 600MG + VIT D 400 IU TAB PO SCH ×3 (08:22→16:33)
[2017-05-29] MEDS: CHOLESTYRAMINE LIGHT 4 GM PKT PO SCH ×2 (08:23→21:13)
[2017-05-29] MEDS: INSULIN ASPART 100 UNITS/ML 3 ML PEN SC SCH ×4 (08:23→20:30)
[2017-05-29] MEDS: AMLODIPINE BESYLATE 5 MG TAB PO SCH (08:23)
[2017-05-29 09:37] LABS: BASO % 0.6 %; BASO ABS # 0.03 K/uL (0-0.2); EOS % 0.6 %; HEMATOCRIT 26.8 % (42-52); IG% 0.4 %; LYMPH % 12.7 %; LYMPH ABS # 0.69 K/uL (1.2-3.4); MEAN CELL VOLUME 91.8 fL (80-100); MEAN CORPUSCULAR HEMOGLOBIN 30.1 pg (25-34); MEAN CORPUSCULAR HGB CONC 32.8 g/dl (32-36); MEAN PLATELET VOLUME 9.2 fL (7.4-10.4); NEUT % 78.7 %; PLATELET COUNT 306 K/uL (130-400); RED BLOOD COUNT 2.92 M/uL (4.7-6.1); WHITE BLOOD COUNT 5.42 K/uL (4.8-10.8)
[2017-05-29 10:00] LABS: BUN/CREATININE RATIO 16.9 (10-20); CALCIUM 7.8 mg/dl (8.5-10.1); CREATININE 0.75 mg/dl (0.60-1.40); MAGNESIUM 1.2 mg/dl (1.8-2.4); POTASSIUM 3.6 mmol/L (3.5-5.1)
[2017-05-29 10:24] LABS: COMPLETE YES
[2017-05-29] MEDS: MAGNESIUM SULFATE 1GM / D5W 1 GM in PREMIXED IN D5W 100 ML IV SCH ×3 (14:37→16:33)
[2017-05-29 15:38] VITALS: BP 143/72; PULSE 86; TEMP 37.1; O2SAT 99
--- NOTE | 2017-05-29 17:22 | Progress Note ---
Subjective Date of Service: May 29, 2017. Subjective Pt evaluation today including: conversation w/ patient, conversation w/ family , physical exam, chart review, lab review, review of studies, review of inpatient medication list rehab denied. called to start peer to peer family notes he is clearly NOT safe at home in current condition he notes that he's feeling fairly good overall though, no new complaints. appears much brighter than when i last saw him. multiple questions - mostly in regards to rehab/snf and what he'd wear, how he'd get to appointments, what he' d do with his folder of bills/etc when at appointments from snf. tried to answer as best i can, but reminded him that i'm not really at all the most qualified to answer those questions, but facilities all would be able to answer this for him once one set up. Problem List Medical Problems: (1) Acute weakness Status: Acute (2) Anemia Status: Acute (3) Fatigue Status: Acute (4) Hypokalemia Status: Acute (5) Hypomagnesemia Status: Acute (6) Hypomagnesemia Status: Acute Review of Systems all other ROS otherwise negative except for as above Objective Vital Signs Date Time Temp Pulse Resp B/P (MAP) Pulse Ox O2 Delivery O2 Flow Rate FiO2 05/29/17 16:00 Room Air 05/29/17 15:38 37.1 86 18 143/72 (95) 99 Room Air 05/29/17 09:00 Room Air 05/29/17 07:32 37.0 82 20 152/82 (105) 99 05/29/17 00:08 37.2 83 18 159/79 (105) 100 Room Air 05/29/17 00:00 Room Air Physical Exam General Appearance: no apparent distress Eyes: EOMI ENT: hearing grossly normal Neck: trachea midline Respiratory/Chest: no respiratory distress, no accessory muscle use Extremities: normal range of motion 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, alert Skin: normal color, warm/dry Laboratory Results Last 24 Hours Test 05/28/17 20:19 05/29/17 07:37 05/29/17 09:24 05/29/17 11:28 Bedside Glucose 169 mg/dl 119 mg/dl 220 mg/dl White Blood Count 5.42 K/uL Red Blood Count 2.92 M/uL Hemoglobin 8.8 g/dL Hematocrit 26.8 % Mean Corpuscular Volume 91.8 fL Mean Corpuscular Hemoglobin 30.1 pg Mean Corpuscular Hemoglobin Concent 32.8 g/dl Platelet Count 306 K/uL Mean Platelet Volume 9.2 fL Neutrophils (%) (Auto) 78.7 % Lymphocytes (%) (Auto) 12.7 % Monocytes (%) (Auto) 7.0 % Eosinophils (%) (Auto) 0.6 % Basophils (%) (Auto) 0.6 % Neutrophils # (Auto) 4.27 K/uL Lymphocytes # (Auto) 0.69 K/uL Monocytes # (Auto) 0.38 K/uL Eosinophils # (Auto) 0.03 K/uL Basophils # (Auto) 0.03 K/uL RDW Standard Deviation 58.1 fL RDW Coefficient of Variation 17.5 % Immature Granulocyte % (Auto) 0.4 % Immature Granulocyte # (Auto) 0.02 K/uL Nucleated RBC Absolute Count (auto) 0.06 K/uL Nucleated Red Blood Cells % 1.2 % Red Blood Cell Morphology Unremarkable Sodium Level 137 mmol/L Potassium Level 3.6 mmol/L Chloride Level 103 mmol/L Carbon Dioxide Level 28 mmol/L Anion Gap 6.0 mmol/L Blood Urea Nitrogen 13 mg/dl Creatinine 0.75 mg/dl Est Creatinine Clear Calc Drug Dose 93.6 ml/min Estimated GFR () 106.2 Estimated GFR (Non- 91.6 BUN/Creatinine Ratio 16.9 Random Glucose 182 mg/dl Calcium Level 7.8 mg/dl Magnesium Level 1.2 mg/dl Test 05/29/17 16:20 Bedside Glucose 238 mg/dl Assessment and Plan GI Bleed/acute blood loss anemia - improved s/p transfusion 2 units - appears likely to have been from both gastritis and mass (pending full report from GI, but on signout from nursing, this appears to be the case) - stable on protonix PO, no signs of repeat bleeding abdominal mass -2 different biopsies show no malignancy at esophagus mass -- ??all just inflammatory or mass being created by external impingement from more pancreatic primary? -next step appears to be biopsy of pancreatic mass - doubt can be done here, will likely require formal IR - but will review with radiology here for feasibility -check CA 19-9 weight loss/failure to thrive -likely relates to all of above -nutritional support once able, social support Hypokalemia - improved. Hypomagnesemia - repleted hypocalcemia and D deficiency -replacing vitamin D, consider repeat levels in 12wks depending on his overall status then Hyperglycemia - sliding scale - sugars have been reasonable Anemia (see above otherwise) - Normal MCV but wide RDW - Iron, B12, folate noted - continue to follow now stable HTN - continue home blood pressure medications, readings continue to be reasonable DVT prophylaxis - SCDs (pharmacologic obviously contraindicated due to bleeding) Full code dispo - seems most appropriate for rehab - improvement in his strength being a pleasant surprise as i had thought SNF would likely be most appropriate - however, rehab denied - awaiting peer to peer. definitely NOT safe in home environment.
[2017-05-29 20:25] VITALS: BP 132/73; PULSE 86
[2017-05-29] MEDS: MAGNESIUM OXIDE 400 MG TAB PO SCH (21:13)
[2017-05-29 23:49] VITALS: BP 147/67; PULSE 67; TEMP 36.9; O2SAT 100
[2017-05-30] MEDS: INSULIN ASPART 100 UNITS/ML 3 ML PEN SC SCH ×2 (06:30→12:15)
[2017-05-30 07:17] VITALS: BP 159/77; PULSE 79; TEMP 37; O2SAT 100
[2017-05-30] MEDS: MAGNESIUM OXIDE 400 MG TAB PO SCH (07:45)
[2017-05-30] MEDS: METOPROLOL TARTRATE 50 MG TAB PO SCH (07:45)
[2017-05-30] MEDS: CALCIUM 600MG + VIT D 400 IU TAB PO SCH ×2 (07:46→12:15)
[2017-05-30] MEDS: CHOLECALCIFEROL 1000 INTER.UNIT TAB PO SCH (07:46)
[2017-05-30] MEDS: AMLODIPINE BESYLATE 5 MG TAB PO SCH (07:46)
[2017-05-30] MEDS: PANTOprazole SOD 40 MG TAB PO SCH (07:47)
[2017-05-30 08:00] VITALS: O2SAT 100
[2017-05-30] MEDS: CHOLESTYRAMINE LIGHT 4 GM PKT PO SCH (09:50)
[2017-05-30 10:56] VITALS: BP 159/77; PULSE 79; TEMP 37; O2SAT 100
[2017-05-30] MEDS ORDERED: PRT40 PO (12:20)
[2017-05-30] MEDS ORDERED: CALCTAB7 PO (12:20)
[2017-05-30] MEDS ORDERED: MGNO400 PO (12:20)
[2017-05-30] MEDS ORDERED: ERGO500011 PO (12:20)
[2017-05-30] MEDS ORDERED: VTMD1000 PO (12:20)
--- NOTE | 2017-05-30 12:25 | Discharge Instructions ---
Discharge Instructions Date of Service May 30, 2017. Admission Reason for Admission: Gi Bleed Discharge Discharge Diagnosis / Problem: GI bleed related to gastritis, weakness/ deconditioning Discharge Goals Goal(s): Diagnostic testing, Therapeutic intervention Activity Recommendations Activity Level: Assistance Required Therapies: Physical Therapy, Occupational Therapy . Additional Information Patient informed of condition: Yes Advance Directives: Yes DNR: No Level of Care: Acute Rehab Communicable Disease: No Prognosis: Improving Instructions / Follow-Up Instructions / Follow-Up GI bleeding - required transfusion, but has been stable for >1wk - follow hemoglobin periodically, sooner as needed should symptoms arise -continue protonix 40mg BID indefinitely upper abdominal masses -during EGD, lower esophageal mass identified, biopsied. in follow up, CT scan was quite concerning for malignancy. however, biopsy only showed inflammatory changes --> repeat biopsy again showed no malignancy, only inflammatory changes. 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 follow status, follow intake. if still losing weight then may need treatment for chronic pancreatitis w pancreatic enzyme supplements, but i suspect this will not be necessary vitamin D deficiency -replace as above, repeat levels in ~12wks see medical discharge summary otherwise Current Hospital Diet Patient's current hospital diet: Regular Diet Discharge Diet Recommended Diet: Regular Diet Procedures Procedures Performed: EGD Pending Studies Studies pending at discharge: no Laboratory Results Hemoglobin A1c Test 05/22/17 02:58 Range/Units Estimated Average Glucose 117 mg/dl Hemoglobin A1c 5.7 H 4.5-5.6 % Medical Emergencies . Who to Call and When: Medical Emergencies: If at any time you feel your situation is an emergency, please call 911 immediately. . Non-Emergent Contact Non-Emergency issues call your: Primary Care Provider, [employer] . . "Provider Documentation" section prepared by Thong Donahue. . Core Measure Problem Core Measures: None
--- NOTE | 2017-05-30 17:09 | Discharge Summary ---
Discharge Summary Date of Service May 30, 2017. Discharge Summary Admission Date: May 21, 2017 at 20:01 Discharge Date: May 30, 2017 Discharge Disposition: Rehab Principal Diagnosis: GI bleeding, concern on mass but may all be inflammatory ( see below) Procedures: EGD x 2 -- showing mass and gastritis. mass biopsied x 2 without malignancy noted - most recent biopsy: FINAL DIAGNOSIS A. STOMACH, PROMINENT GASTRIC FOLD, BIOPSIES: 1. CHRONIC GASTRITIS, MILD. 2. NO ACUTE ACTIVITY NOTED. 3. IMMUNOHISTOCHEMICAL STAIN FOR H. PYLORI NEGATIVE. 4. NO INTESTINAL METAPLASIA SEEN. 5. NEGATIVE FOR DYSPLASIA AND MALIGNANCY. B. ESOPHAGUS, DISTAL, BIOPSIES: 1. FRAGMENTS OF GASTRIC-TYPE MUCOSA WITH HYPERPLASTIC CHANGE. 2. BENIGN SQUAMOUS MUCOSA. 3. FOCAL FIBRINOPURULENT EXUDATE SUGGESTIVE OF ULCER. 4. NEGATIVE FOR DYSPLASIA AND MALIGNANCY. RV/mas ABDOMEN AND PELVIS CT WITH IV AND ORAL CONTRAST CT DOSE: 381.62 mGy.cm HISTORY: gastric mass, eval for extent, ?other lesions, ?evidence of mets TECHNIQUE: Multiaxial CT images of the abdomen and pelvis were performed following the use of intravenous and oral contrast. A dose lowering technique was utilized adhering to the principles of ALARA. COMPARISON STUDY: None. FINDINGS: Trace bilateral pleural effusions. Mild thickening of the distal esophagus. Mild dependent changes at the lung bases. No pneumoperitoneum. No pneumatosis. No suspicious lytic or blastic osseous lesions. Severe hepatic steatosis. No hepatic or splenic masses. The adrenal glands and gallbladder are unremarkable. No hydronephrosis. Subcentimeter hypodense lesions within the left kidney are too small to characterize. There are 2 cysts within the right kidney with the largest in the upper pole measuring 5.4 cm. Surgical clips noted at the umbilicus. Bladder is now well-distended but appears unremarkable. Small amount of ascites seen within the pelvis. No bowel wall thickening or obstruction. Multiple lobular low density areas surrounding the majority of the pancreas. There is incomplete enhancement of the pancreatic tail with encasement and possibly invasion of the pancreatic tail from the low density area/collections. Similar appearing focal low-density lesion within the small hiatus hernia which measures 5.1 x 2.6 cm. The low density area/lesion surrounding the pancreatic tail extends superiorly and abuts the greater curvature of the stomach. There is also suggestion of a septated low-density collection/lesion within the wall of the gastric fundus. This measures 3.8 x 3.5 cm. This may be contiguous with the low density area surrounding the pancreatic tail. 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 The low density collection adjacent to the pancreatic head measures 4 cm. IMPRESSION: 1. Multiple lobular low density areas surrounding the majority of the pancreas. There is incomplete enhancement of the pancreatic tail with encasement and possibly invasion of the pancreatic tail from the low density area/collections. Similar appearing focal low-density lesion within the small hiatus hernia which measures 5.1 x 2.6 cm. The low density area/lesion surrounding the pancreatic tail extends superiorly and abuts the greater curvature of the stomach. There is also suggestion of a septated low-density collection/lesion within the wall of the gastric fundus. This measures 3.8 x 3.5 cm. This may be contiguous with the low density area surrounding the pancreatic tail. This is nonspecific and could represent a neoplastic process or possibly multiple pseudocysts from prior pancreatitis. Endoscopy with biopsy of the gastric wall lesion is recommended. 2. 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 Electronically signed by: Sammy Phillips M.D. 05/23/2017 2:29 PM on review w radiology personally, 2 different radiologists felt the mass area in UGI tract was more ominous for malignancy, and that the area around the pancreas really was far more c/w chronic pancreatitis changes [~ rep ct add3]] (CHEST) THORAX WITHOUT CT DOSE: 216.59 mGy.cm CLINICAL HISTORY: 71 years-old Male with esophageal CA, eval for extent and mets. History of esophageal cancer. Screening study for possible metastasis. TECHNIQUE: Multiaxial CT images of the chest were performed without contrast. A dose lowering technique was utilized adhering to the principles of ALARA. COMPARISON: CT abdomen and pelvis 05/22/2017. FINDINGS: Thyroid appears mildly atrophic without dominant nodule identified. There are scattered nonenlarged lymph nodes about the chest without pathologically enlarged lymph nodes identified. Cardiac silhouette is mildly enlarged with coronary arterial calcifications. There is atherosclerosis of the thoracic aorta. No aneurysm identified. There are small bilateral pleural effusions. There is no pneumothorax or focal airspace consolidation. Linear subsegmental opacities of the bilateral lower lobe suggest areas of scarring and/or atelectasis. Subsegmental catheter granuloma the right lower lobe is noted. There is mild biapical pleural-parenchymal scarring, right greater the left. 3 mm pleural-based pulmonary nodule is present within the apical segment right upper lobe, image 28 series 4 which also suggests scarring. No suspicious pulmonary nodules are identified. Central airways are patent. Severe fatty infiltration of the liver. Inflammatory changes of the upper abdomen again seen with fluid surrounding the proximal stomach and also within the lesser sac. Lobulated low attenuating collection within the retrocrural space into the esophageal hiatus measures up to 5.6 x 2.9 x 3.9 cm. There is circumferential wall thickening with stranding inflammatory stranding of the mid and distal portions of the esophagus as well as within the region of the gastric cardia and imaged proximal stomach. Bilateral symmetric gynecomastia. The bones appear to be mildly demineralized. No suspicious lytic or blastic bony lesions to suggest metastasis. Multilevel bridging osteophytes of the spine are present. IMPRESSION: 1. Circumferential wall thickening of the mid and distal esophagus with surrounding inflammatory stranding is noted in addition to wall thickening and heterogeneity of the imaged proximal stomach, better evaluated on comparison CT abdomen and pelvis from 05/22/2017. These findings are suspicious for esophageal and/or possible gastric carcinoma. Correlate with endoscopy findings. 2. Lobulated low attenuating collection within the retrocrural space adjacent to the esophageal hiatus measuring up to 5.6 cm suggests loculated fluid extending from the abdomen. 3. Small bilateral pleural effusions with subsegmental bibasilar atelectasis. 4. Severe fatty infiltration of the liver. 5. No evidence of lymphatic or osseous metastasis. Electronically signed by: Joey Justice M.D. 05/23/2017 3:47 PM Last Resulted CBC 05/29/17 09:24 Red Blood Count 2.92, Mean Corpuscular Volume 91.8, Mean Corpuscular Hemoglobin 30.1, Mean Corpuscular Hemoglobin Concent 32.8, Mean Platelet Volume 9.2, Neutrophils (%) (Auto) 78.7, Lymphocytes (%) (Auto) 12.7, Monocytes (%) (Auto) 7.0, Eosinophils (%) (Auto) 0.6, Basophils (%) (Auto) 0.6, Neutrophils # (Auto) 4.27, Lymphocytes # (Auto) 0.69, Monocytes # (Auto) 0.38, Eosinophils # (Auto) 0.03, Basophils # (Auto) 0.03 Last Resulted BMP 05/29/17 09:24 Item Value Date Time Calcium Level 7.8 mg/dl L 05/29/17923 Magnesium Level 1.2 mg/dl L 05/29/17923 Total Iron Binding Capacity 140 mcg/dl L 05/21/172036 Ferritin 1296.3 ng/ml H 05/21/172036 Albumin 2.0 gm/dl L 05/21/171751 Vitamin B12 Level 938 pg/mL H 05/21/172036 25-Hydroxy Vitamin D Total 5.4 ng/ml L 05/23/17 0656 Folate 7.26 ng/mL 05/21/172036 Consultations: GI Medication Reconciliation New Medications: Calcium Carbonate-Vitamin D W/ (Caltrate 600 Plus) 1 Tab Tab 1 TAB PO TIDM, #60 TAB Cholecalciferol (Vitamin D3) 1,000 Inter.unit Tab 4000 INTER.UNIT PO QAM, #60 TAB Ergocalciferol (Vitamin D 45256 Unit) 50,000 Unit Cap 13606 INTERUNIT PO Q7D@0900, #12 CAP Magnesium Oxide (Magnesium-Oxide) 400 Mg Tab 400 MG PO BID, #60 TAB Pantoprazole (Pantoprazole Sodium) 40 Mg Tab 40 MG PO BID, #60 TAB Continued Medications: Amlodipine (Norvasc) 2.5 Mg Tab 2.5 MG PO DAILY, TAB Metoprolol Tartrate (Lopressor) (Lopressor) 50 Mg Tab 50 MG PO Q12H, TAB Discharge Exam Physical Exam: General Appearance: no apparent distress Eyes: EOMI ENT: hearing grossly normal Neck: trachea midline Respiratory/Chest: no respiratory distress, no accessory muscle use Extremities: normal inspection Neurologic/Psychiatric: animal pathologist II-XII nml as tested, alert, normal mood/affect Skin: normal color, warm/dry Hospital Course GI Bleed/acute blood loss anemia - improved s/p transfusion 2 units - appears likely to have been from both gastritis and mass - stable on protonix PO, no signs of repeat bleeding - continue protonix indefinitely, and periodic Hgb abdominal mass -2 different biopsies show no malignancy at esophagus mass -- ??all just inflammatory -- EGD visually described as a fungating mass, but 2 separate EGDs w biopsy not showing anything malignant. ?possibly ongoing and chronic inflammatory changes? -- continue protonix, periodic GI follow up for ongoing evaluation +/- serial EGDs -pancreatic area less concerning for malignancy given that the esophageal biopsies have been negative. d/w radiology regarding possible biopsy or IR for biopsy but on review they noted that there's nowhere specific to the peripancreatic changes that appears worrisome for mass -all appears c/w chronic pancreatitis changes -[id number] sent and pending -repeat CT abdomen in ~1 month -- follow for changes and revisit +/- biopsy should worrisome changes arise weight loss/failure to thrive/protein calorie malnutrition -likely relates to all of above and longstanding EtOH abuse -nutritional support, social support -replace deficiencies, follow EtOH abuse -no withdrawal -doing well off EtOH -notes to me that he was drinking in large part out of boredom, although sister worries more about true alcoholism -ongoing f/u Hypokalemia - improved. Hypomagnesemia - repleted hypocalcemia and D deficiency -replacing vitamin D, consider repeat levels in 12wks Hyperglycemia - A1c 5.7 Anemia (see above otherwise) - Normal MCV but wide RDW - Iron, B12, folate noted - see above - continue to follow now stable HTN - continue home blood pressure medications, readings continue to be reasonable DVT prophylaxis - SCDs utilized during his stay(pharmacologic obviously contraindicated due to bleeding) safe/stable for rehab ongoing w/u for mass/chronic inflammatory changes vs malignancy as above ( initially was extremely concerning for malignancy, but now appearing quite possibly all inflammatory changes wtih malignancy simply needing to be ruled out Total Time Spent: Greater than 30 minutes This includes examination of the patient, discharge planning, medication reconciliation, and communication with other providers. Discharge Instructions Please refer to the electronic Patient Visit Report (Discharge Instructions) for additional information. Additional Copies To Reynaldo Roland
== END 2017-05-30 13:20 | DRG 391 ==
LOC: EDBD 16:33 → C.EDA 16:35 → C.2T 20:01 → ENRESERV 20:11 → CANRESERV 05-23 13:46 → ENRESERV 05-23 13:59 → C.4E 05-23 14:44
PROVIDERS: ADMIT Internal Medicine; ATTEND Family Medicine
PROC: 0DB48ZX Excision of Esophagogastric Junction, Via Natural or Artificial Opening Endoscopic, Diagnostic (ICD-10-PCS; principal; 2017-05-22 11:44)
PROC: 0DB68ZX Excision of Stomach, Via Natural or Artificial Opening Endoscopic, Diagnostic (ICD-10-PCS; principal; 2017-05-22 11:44)
PROC: 0DB48ZX Excision of Esophagogastric Junction, Via Natural or Artificial Opening Endoscopic, Diagnostic (ICD-10-PCS; 2017-05-26)
PROC: 0DB68ZX Excision of Stomach, Via Natural or Artificial Opening Endoscopic, Diagnostic (ICD-10-PCS; 2017-05-26)
DX: K22.9 Disease of esophagus, unspecified (principal); K29.71 Gastritis, unspecified, with bleeding; D62 Acute posthemorrhagic anemia; E46 Unspecified protein-calorie malnutrition; K86.1 Other chronic pancreatitis; E87.6 Hypokalemia; E83.42 Hypomagnesemia; R73.9 Hyperglycemia, unspecified; I10 Essential (primary) hypertension; F10.10 Alcohol abuse, uncomplicated; E83.51 Hypocalcemia; Z87.891 Personal history of nicotine dependence

== ENCOUNTER → 2017-10-24 | Day surgery (SDC) | payer OTHER ==
[2017-10-13 15:07] VITALS: Ht 180.3 cm; Wt 81.8 kg
[~2017-10-24] VITALS: Ht 180.3 cm; Wt 81.8 kg
[~2017-10-24] MED LIST changes: -AMLO-110 PO; +AMLO2.5T PO; +CRFUDL PO; +CYAN100073 PO; +FOLI1POW10 PO; -LISI-725 PO; +LISI-789 PO; +METO-551 PO; -METO50TA16 PO; +PANT40TA PO; +SODIUM CHLORIDE 0.9% 500ML 500 ML IV ONE; +THM100 PO
--- NOTE | 2017-10-24 11:25 | Endo History and Physical ---
History & Physical Date of Service: Oct 24, 2017. Chief Complaint: Esophageal mass Referring Physician: Dr. Rigo Mehta History of Present Illness 72 yo CM who presents for EGD secondary to esophageal mass. Past Surgical History Hx Cardiac Surgery: No Hx Internal Defibrillator: No Hx Pacemaker: No Hx Abdominal Surgery: Yes (UMBILICAL HERNIA) Hx of Implantable Prosthesis: No Hx Post-Op Nausea and Vomiting: No Hx Cancer Surgery: No Hx Thoracic Surgery: No Hx Orthopedic: No Hx Urinary Tract Surgery: No Social History Smoking Status: Never Smoker Hx Substance Use: No Hx Alcohol Use: Yes (OCCASIONALLY) Allergies Coded Allergies: Poison Karla Extract/Poison [place] Extra (Verified Allergy, Intermediate, ITCH , 10/24/17) NO KNOWN DRUG ALLERGIES (Verified Allergy, Unknown, ., 10/13/17) Current Medications Reported Home Medications Medications Dose Route/Sig Max Daily Dose Days Date Category Norvasc (Amlodipine Besylate) 2.5 Mg Tab 2.5 Mg PO DAILY 10/24/17 Reported Lopressor (Metoprolol Tartrate) 50 Mg Tab 50 Mg PO BID 10/13/17 Reported Vital Signs Weight (Kilograms): 81.82 Height (Feet): 5 Height (Inches): 11 Date Time Temp Pulse Resp B/P (MAP) Pulse Ox O2 Delivery O2 Flow Rate FiO2 10/24/17 10:56 36.7 94 20 158/100 (119) 97 Room Air Physical Exam General Appearance: WD/WN, no apparent distress Respiratory/Chest: Auscultation: breath sounds normal Cardiovascular: Heart Auscultation: RRR Abdomen: Bowel Sounds: normal Inspection & Palpation: soft, non-distended, no tenderness, guarding & rebound Assessment and Plan Assessment: 72 yo CM who presents for EGD secondary to esophageal mass. Plan: Proceed with EGD.
--- NOTE | 2017-10-24 11:42 | Discharge Instructions ---
Endoscopy Patient Instructions Date / Procedure(s) Performed Oct 24, 2017. EGD Allergy Information Coded Allergies: Poison Karla Extract/Poison [employer] Extra (Verified Allergy, Intermediate, ITCH , 10/24/17) NO KNOWN DRUG ALLERGIES (Verified Allergy, Unknown, ., 10/13/17) Discharge Date / Findings Oct 24, 2017. Esophagitis [place] mass s/p biopsies Hiatal hernia Medication Instructions 1) Start Pantoprazole 40mg by mouth twice daily 1/2 hour prior to breakfast and dinner. 2) OK to resume all medications today as prescribed Reported Home Medications Medications Dose Route/Sig Max Daily Dose Days Date Category Norvasc (Amlodipine Besylate) 2.5 Mg Tab 2.5 Mg PO DAILY 10/24/17 Reported Lopressor (Metoprolol Tartrate) 50 Mg Tab 50 Mg PO BID 10/13/17 Reported Provider Instructions Activity Restrictions - No exercising or heavy lifting for 24 hours. - Do not drink alcohol the day of the procedure. - Do not drive a car or operate machinery until the day after the procedure. - Do not make any important decisions or sign important papers in 24 hours after the procedure. Following Day: - Return to full activity which may include returning to work/school. Diet Start your diet with liquids and light foods (jello, soup, juice, toast). Then eat your usual diet if not nauseated. Treatment For Common After Affects For mild abdominal pain, bloating, or excessive gas: - Rest - Eat lightly - Lie on right side Follow-Up Information Follow-up with Dr. Rigo Mehta as scheduled Anesthesia Information What You Should Know You have had a procedure that required some medicine to reduce anxiety and discomfort. This treatment is called moderate sedation. After receiving the treatment, you may be sleepy, but you will be able to breathe on your own. The effects of the treatment may last for several hours. Follow these instructions along with Activity/Diet recommendations noted above: * Do NOT do anything where dizziness or clumsiness would be dangerous. * Rest quietly at home today, then you can be up and about tomorrow. * Have a responsible person stay with you the rest of today. * You may have had an I.V. today. If so, you may take the dressing off later today. Recommendations Call your doctor if: * Trouble breathing * Continuous vomiting for more than 24 hours * Temperature above 101 degrees * Severe abdominal pain or bloating * Pain not relieved by pain medicine ordered * There is increased drainage or redness from any incision * A large amount of rectal bleeding greater than 2-3 tablespoons. (If you had a polyp/s removed or have hemorrhoids, a small amount of blood - from the rectum is to be expected.) * You have any unanswered questions or concerns. IN THE EVENT OF A SERIOUS EMERGENCY, GO TO THE NEAREST EMERGENCY ROOM Your discharge instructions were prepared by provider Torin Godfrey. Patient Instructions Signature Page Chuck Zhang Patient (or Guardian) Signature/Date: I have read and understand the instructions given to me by my caregivers. Caregiver/RN/Doctor Signature/Date: The above-named patient and/or guardian has received patient instructions on this date. + Original Patient Signature Page (only) stays with chart. Please make copy for patient.
--- NOTE | 2017-10-24 11:47 | GI REPORT ---
Procedure Date: 10/24/2017 11:10 AM Procedure: Upper GI endoscopy Indications: Gastro-esophageal reflux disease, Esophageal nodule for repeat biopsies Medicines: Monitored Anesthesia Care Complications: No immediate complications. Estimated Blood Loss: Estimated blood loss: none. Procedure: Pre-Anesthesia Assessment: - Prior to the procedure, a History and Physical was performed, and patient medications and allergies were reviewed. The patient's tolerance of previous anesthesia was also reviewed. The risks and benefits of the procedure and the sedation options and risks were discussed with the patient. All questions were answered, and informed consent was obtained. Prior Anticoagulants: The patient has taken no previous anticoagulant or antiplatelet agents. ASA Grade Assessment: II - A patient with mild systemic disease. After reviewing the risks and benefits, the patient was deemed in satisfactory condition to undergo the procedure. After obtaining informed consent, the endoscope was passed under direct vision. Throughout the procedure, the patient's blood pressure, pulse, and oxygen saturations were monitored continuously. The scope was introduced through the mouth, and advanced to the second part of duodenum. The upper GI endoscopy was accomplished without difficulty. The patient tolerated the procedure well. Findings: LA Grade D (one or more mucosal breaks involving at least 75% of esophageal circumference) esophagitis with no bleeding was found. A medium-sized, fungating mass with no bleeding and no stigmata of recent bleeding was found at the gastroesophageal junction. The mass was non-obstructing and not circumferential. Biopsies were taken with a cold forceps for histology. A medium-sized hiatal hernia was present. The examined duodenum was normal. Impression: - LA Grade D reflux esophagitis. - Likely malignant esophageal tumor was found at the gastroesophageal junction. Biopsied. - Medium-sized hiatal hernia. - Normal examined duodenum. Recommendation: - Resume previous diet. - Use Protonix (pantoprazole) 40 mg PO BID. - Await pathology results. - Return to primary care physician as previously scheduled. Torin Godfrey, DO 10/24/2017 11:47:25 AM This report has been signed electronically. Note Initiated On: 10/24/2017 11:10 AM I attest to the content of the Intraoperative Record and orders documented therein, exceptions below
--- NOTE | 2017-10-24 12:12 | Anesthesiology Progress Note ---
Anesthesia Post Op Note Date & Time Oct 24, 2017 at 12:12 Vital Signs Pain Intensity: 0 Vital Signs Past 12 Hours Date Time Temp Pulse Resp B/P (MAP) Pulse Ox O2 Delivery O2 Flow Rate FiO2 10/24/17 10:56 36.7 94 20 158/100 (119) 97 Room Air Notes Mental Status: alert / awake / arousable, participated in evaluation Pt Amnestic to Procedure: Yes Nausea / Vomiting: adequately controlled Pain: adequately controlled Airway Patency, RR, SpO2: stable & adequate BP & HR: stable & adequate Hydration State: stable & adequate Anesthetic Complications: no major complications apparent
[2017-10-24 12:20] VITALS: BP 151/80; PULSE 92; O2SAT 98
== END | disposition home or self-care (01) ==
LOC: C.GI 10:37
PROVIDERS: ATTEND Internal Medicine
DX: K21.0 Gastro-esophageal reflux disease with esophagitis (principal); I10 Essential (primary) hypertension; D64.9 Anemia, unspecified; K44.9 Diaphragmatic hernia without obstruction or gangrene

== ENCOUNTER → 2017-11-02 | Outpatient (CLI) | payer OTHER ==
[~2017-11-02] MED LIST changes: -LISI-789 PO; -SODIUM CHLORIDE 0.9% 500ML 500 ML IV ONE
== END ==
LOC: C.LAB 18:00
DX: Z02.83 Encounter for blood-alcohol and blood-drug test (principal)

== ENCOUNTER → 2018-02-09 | Day surgery (SDC) | payer OTHER ==
[2018-02-03 16:23] VITALS: BMI 23.0
[~2018-02-09] VITALS: Ht 180.3 cm; Wt 76.4 kg
[~2018-02-09] MED LIST changes: -CRFUDL PO; -CYAN100073 PO; +FLV400 PO; -FOLI1POW10 PO; +LIDOCAINE HCL 2% 2 ML VIAL (20MG/ML) ONE; +MIDAZOLAM HCL 1 MG/ML 2ML VIAL ONE; +ONDANSETRON INJ 2 MG/ML 2 ML VIAL ONE; +PROPOFOL IV EMULSION 10 MG/ML 20 ML VIAL ONE; +SODIUM CHLORIDE 0.9% 500ML 500 ML IV ONE; -THM100 PO
[2018-02-09 10:54] VITALS: Ht 180.3 cm; Wt 76.4 kg
--- NOTE | 2018-02-09 11:36 | Endo History and Physical ---
History & Physical Date of Service: Feb 09, 2018. Chief Complaint: ESOPHAGEAL MASS Referring Physician: DR. BOLDEN History of Present Illness 72 yo CM who presents for EGD secondary to esophagitis with esophageal mass. Past Surgical History Hx Cardiac Surgery: No Hx Internal Defibrillator: No Hx Pacemaker: No Hx Abdominal Surgery: Yes (UMBILICAL HERNIA) Hx of Implantable Prosthesis: No Hx Post-Op Nausea and Vomiting: No Hx Cancer Surgery: No Hx Thoracic Surgery: No Hx Orthopedic: No Hx Urinary Tract Surgery: No Family History None Social History Smoking Status: Never Smoker Hx Substance Use: No Hx Alcohol Use: Yes (2 DRINKS OF GIN 3X A WEEK) Allergies Coded Allergies: Poison Karla Extract/Poison [place] Extra (Verified Allergy, Intermediate, ITCH , 02/03/18) NO KNOWN DRUG ALLERGIES (Verified Allergy, Unknown, ., 02/03/18) Current Medications Reported Home Medications Medications Dose Route/Sig Max Daily Dose Days Date Category Folic Acid 400 Mcg Tab 2 Tab PO DAILY 02/03/18 Reported Protonix (Pantoprazole Sodium) 40 Mg Tab 40 Mg PO BID 10/24/17 Reported Norvasc (Amlodipine Besylate) 2.5 Mg Tab 2.5 Mg PO DAILY 10/24/17 Reported Lopressor (Metoprolol Tartrate) 50 Mg Tab 50 Mg PO BID 10/13/17 Reported Vital Signs Weight (Kilograms): 76.36 Height (Feet): 5 Height (Inches): 11 Date Time Temp Pulse Resp B/P (MAP) Pulse Ox O2 Delivery O2 Flow Rate FiO2 02/09/18 10:57 37.4 73 20 176/97 (123) 97 Room Air Physical Exam General Appearance: WD/WN, no apparent distress Respiratory/Chest: Auscultation: breath sounds normal Cardiovascular: Heart Auscultation: RRR Abdomen: Bowel Sounds: normal Inspection & Palpation: soft, non-distended, no tenderness, guarding & rebound Assessment and Plan Assessment: 72 yo CM who presents for EGD secondary to esophagitis with esophageal mass. Plan: Proceed with EGD.
--- NOTE | 2018-02-09 12:08 | Discharge Instructions ---
Endoscopy Patient Instructions Date / Procedure(s) Performed Feb 09, 2018. EGD Allergy Information Coded Allergies: Poison Karla Extract/Poison [place] Extra (Verified Allergy, Intermediate, ITCH , 02/03/18) NO KNOWN DRUG ALLERGIES (Verified Allergy, Unknown, ., 02/03/18) Discharge Date / Findings Feb 09, 2018. Severe esophagitis Medication Instructions 1) Protonix 40mg by mouth twice daily 1/2 hour prior to breakfast and dinner. 2) OK to resume all medications today as prescribed Reported Home Medications Medications Dose Route/Sig Max Daily Dose Days Date Category Folic Acid 400 Mcg Tab 2 Tab PO DAILY 02/03/18 Reported Protonix (Pantoprazole Sodium) 40 Mg Tab 40 Mg PO BID 10/24/17 Reported Norvasc (Amlodipine Besylate) 2.5 Mg Tab 2.5 Mg PO DAILY 10/24/17 Reported Lopressor (Metoprolol Tartrate) 50 Mg Tab 50 Mg PO BID 10/13/17 Reported Provider Instructions Activity Restrictions - No exercising or heavy lifting for 24 hours. - Do not drink alcohol the day of the procedure. - Do not drive a car or operate machinery until the day after the procedure. - Do not make any important decisions or sign important papers in 24 hours after the procedure. Following Day: - Return to full activity which may include returning to work/school. Diet Start your diet with liquids and light foods (jello, soup, juice, toast). Then eat your usual diet if not nauseated. Treatment For Common After Affects For mild abdominal pain, bloating, or excessive gas: - Rest - Eat lightly - Lie on right side Follow-Up Information Follow-up with DR. BOLDEN as scheduled Anesthesia Information What You Should Know You have had a procedure that required some medicine to reduce anxiety and discomfort. This treatment is called moderate sedation. After receiving the treatment, you may be sleepy, but you will be able to breathe on your own. The effects of the treatment may last for several hours. Follow these instructions along with Activity/Diet recommendations noted above: * Do NOT do anything where dizziness or clumsiness would be dangerous. * Rest quietly at home today, then you can be up and about tomorrow. * Have a responsible person stay with you the rest of today. * You may have had an I.V. today. If so, you may take the dressing off later today. Recommendations Call your doctor if: * Trouble breathing * Continuous vomiting for more than 24 hours * Temperature above 101 degrees * Severe abdominal pain or bloating * Pain not relieved by pain medicine ordered * There is increased drainage or redness from any incision * A large amount of rectal bleeding greater than 2-3 tablespoons. (If you had a polyp/s removed or have hemorrhoids, a small amount of blood - from the rectum is to be expected.) * You have any unanswered questions or concerns. IN THE EVENT OF A SERIOUS EMERGENCY, GO TO THE NEAREST EMERGENCY ROOM Your discharge instructions were prepared by provider Torin Godfrey. Patient Instructions Signature Page Chuck Zhang Patient (or Guardian) Signature/Date: I have read and understand the instructions given to me by my caregivers. Caregiver/RN/Doctor Signature/Date: The above-named patient and/or guardian has received patient instructions on this date. + Original Patient Signature Page (only) stays with chart. Please make copy for patient.
--- NOTE | 2018-02-09 12:13 | GI REPORT ---
Patient Name: Chuck Zhang Procedure Date: 02/09/2018 11:42 AM Date of : 1945 Admit Type: Outpatient Age: 72 Gender: Male Attending MD: Torin Godfrey DO Procedure: Upper GI endoscopy Providers: Torin Godfrey DO Referring MD: Rigo Mehta Indications: Follow-up of esophagitis Medicines: Monitored Anesthesia Care Complications: No immediate complications. Estimated Blood Loss: Estimated blood loss: none. Procedure: Pre-Anesthesia Assessment: - Prior to the procedure, a History and Physical was performed, and patient medications and allergies were reviewed. The patient's tolerance of previous anesthesia was also reviewed. The risks and benefits of the procedure and the sedation options and risks were discussed with the patient. All questions were answered, and informed consent was obtained. Prior Anticoagulants: The patient has taken no previous anticoagulant or antiplatelet agents. ASA Grade Assessment: II - A patient with mild systemic disease. After reviewing the risks and benefits, the patient was deemed in satisfactory condition to undergo the procedure. After obtaining informed consent, the endoscope was passed under direct vision. Throughout the procedure, the patient's blood pressure, pulse, and oxygen saturations were monitored continuously. The scope was introduced through the mouth, and advanced to the second part of duodenum. The patient tolerated the procedure well. The upper GI endoscopy was accomplished without difficulty. Findings: Severe esophagitis with bleeding was found. Biopsies were taken with a cold forceps for histology. An esophageal stricture was noted and dilated with passage of endoscope. The stomach was normal. The examined duodenum was normal. Impression: - Severe chronic esophagitis. Biopsied. - Normal stomach. - Normal examined duodenum. Recommendation: - Resume previous diet. - Use Protonix (pantoprazole) 40 mg PO BID. - Return to primary care physician as previously scheduled. Torin Godfrey DO 02/09/2018 12:12:50 PM This report has been signed electronically. Note Initiated On: 02/09/2018 11:42 AM Number of Addenda: 1 I attest to the content of the Intraoperative Record and orders documented therein, exceptions below Addendum Number: 1 Addendum Date: 02/09/2018 4:46:22 PM No biopsies were taken on this exam and therefore, no pathology is pending. Torin Godfrey DO 02/09/2018 4:46:55 PM This report has been signed electronically. {[id number]}
[2018-02-09 12:30] VITALS: BP 167/84; PULSE 82; O2SAT 94
--- NOTE | 2018-02-09 12:40 | Anesthesiology Progress Note ---
Anesthesia Post Op Note Date & Time Feb 09, 2018 at 12:40 Vital Signs Pain Intensity: 0 Vital Signs Past 12 Hours Date Time Temp Pulse Resp B/P (MAP) Pulse Ox O2 Delivery O2 Flow Rate FiO2 02/09/18 12:15 81 20 164/88 (113) 94 Room Air 02/09/18 12:00 37.4 83 16 125/69 (87) 94 Room Air 02/09/18 10:57 37.4 73 20 176/97 (123) 97 Room Air Notes Mental Status: alert / awake / arousable, participated in evaluation Pt Amnestic to Procedure: Yes Nausea / Vomiting: adequately controlled Pain: adequately controlled Airway Patency, RR, SpO2: stable & adequate BP & HR: stable & adequate Hydration State: stable & adequate Anesthetic Complications: no major complications apparent
== END | disposition home or self-care (01) ==
LOC: C.GI 10:24
PROVIDERS: ATTEND Internal Medicine
DX: K20.9 Esophagitis, unspecified (principal); K22.2 Esophageal obstruction; I10 Essential (primary) hypertension